=== PATIENT | male | born 1950 | race Caucasian/White ===

== ENCOUNTER → 2017-06-15 | Outpatient (CLI) | payer OTHER ==
[~2017-06-15] MED LIST: ACET-1311 PO; ALFUZOSIN HCL PO; ASPCH81; CHLO0.12 OR; DEXTSYP41 PO; GFNSR600 PO; IMD/2 PO; IMIP10TA2 PO; MAGNSUS5 PO; MULT-506 PO; PENC1CRE33 TOP; PPTBS PO; [UNRECOGNIZED DRUG - OTHER] PO; [UNRECOGNIZED DRUG - OTHER] TOP
== END | disposition home or self-care (01) ==
LOC: C.LAB 11:36
PROVIDERS: ATTEND Physician Assistant
DX: Z00.00 Encounter for general adult medical examination without abnormal findings (principal); E78.5 Hyperlipidemia, unspecified; Z12.5 Encounter for screening for malignant neoplasm of prostate

== ENCOUNTER 2023-03-16 09:08 | Inpatient (IN) ==
[2023-03-16] MEDS ORDERED: SODIUM CHLORIDE 0.9% 500 ML IV STA (09:49)
[2023-03-16 10:18] LABS: iSTAT Creatinine 1.4 mg/dl (0.6-1.3); iSTAT Hemoglobin 19.4 g/dl (14.0-18.0); iSTAT Ionized Calcium 0.93 mmol/l (1.12-1.32); iSTAT Potassium 3.4 mmol/L (3.3-5.0)
[2023-03-16 10:25] LABS: Base Excess VBG -0.4 mEq/L; HCO3 VBG 25 mmol/L; Oxygen Saturation VBG < 60.0 %; PCO2 VBG 45 mmHg (38-50); PO2 VBG 23 mmHg; pH VBG 7.36 (7.36-7.41)
[2023-03-16 10:32] LABS: Troponin I High Sensitivity 22.3 pg/ml (0-20)
[2023-03-16 10:35] LABS: Basophils # (auto) 0.06 K/uL (0.00-0.20); Basophils % (auto) 0.3 %; Hematocrit (blood only) 53.6 % (42.0-52.0); Hemoglobin 19.1 g/dl (14.0-18.0); Immature Granulocytes # (auto) 0.09 K/uL (0.01-0.20); Immature Granulocytes % (auto) 0.5 %; Lymphocytes # (auto) 0.55 K/uL (1.20-3.40); Lymphocytes % (auto) 3.1 %; Mean Corpuscular Hemoglobin 30.9 pg (25.0-34.0); Mean Corpuscular Hgb Conc 35.6 g/dL (32.0-36.0); Mean Corpuscular Volume 86.6 fL (80.0-100.0); Mean Platelet Volume 11.9 fL (9.4-12.4); Monocytes # (auto) 0.94 K/uL (0.11-0.59); Monocytes % (auto) 5.3 %; Neutrophils # (auto) 16.06 K/uL (1.40-6.50); Neutrophils % (auto) 90.8 %; Platelet Count 263 K/uL (130-400); Polychromasia 1+; RDW Coefficient of Variation 14.1 % (11.5-14.5); RDW Standard Deviation 44.3 fL (36.4-46.3); Red Blood Count 6.19 M/uL (4.70-6.10)
[2023-03-16 10:37] LABS: Potassium 3.5 mmol/L (3.5-5.1)
[2023-03-16 10:39] LABS: BUN Creatinine Ratio 20.6 (10-20); Calcium 8.1 mg/dl (8.6-10.3); Creatinine Clr Calc Pharmacy 40.4 ml/min; Est GFR (African American) 48.8 ml/min; Est GFR (Non-African American) 42.1 ml/min
[2023-03-16] MEDS ORDERED: OPTIRAY 320 125ml IV ONE (10:42)
[2023-03-16 10:47] LABS: INR 1.1 (0.9-1.1); Partial Thromboplastin Ratio 0.9; Partial Thromboplastin Time 26 Seconds (21-31); Prothrombin Time 12.2 Seconds (9.0-12.0)
--- NOTE | 2023-03-16 10:51 | CT Scan Report ---
CT head/brain wo con CLINICAL HISTORY: ams Technique: Contiguous axial CT images of the head were acquired from the base of the skull to the seble jeff without intravenous contrast administration. Images were viewed in brain, subdural and bone [facility]. Automated dose lowering techniques and/or adjustment according to patient size were utilized for this exam. Comparison: Comparison is made to CT head 10/29/2020 Findings: Areas of decreased attenuation are present in the periventricular and subcortical white matter bilate rally consistent with small vessel ischemic disease. Generalized cerebral atrophy with commensurate e nlargement of the ventricles, sulci, and cisterns is also present. There is no acute intracranial hem orrhage or evidence of acute territorial infarction. No shift of the midline structures, mass effect, or extra-axial abnormalities are shown. Atherosclerotic calcifications are present in the intracran ial segments of the internal carotid arteries. Imaged portions of the paranasal sinuses and mastoid air cells are clear. Bilateral ocular prosthese s. There are no acute fractures of the calvaria or scalp swelling. Impression: No acute intracranial hemorrhage, no evidence of acute territorial infarction or other acute intracra nial disease process. ACT 112: Negative or not required by law. Electronically signed by: Geovany Rosales M.D. 03/16/2023 10:49 AM
--- NOTE | 2023-03-16 10:51 | XRay Report ---
XR chest 1V portable CLINICAL HISTORY: Chest pain, nonspecific TECHNIQUE: Single frontal radiograph of the chest was obtained. Comparison: Comparison is made to chest radiograph 10/29/2020 FINDINGS: No lines and tubes are seen. Cardiomegaly is noted. Elevation of left hemidiaphragm is seen. No evide nce of pleural effusion or pneumothorax. IMPRESSION: Elevation of left hemidiaphragm is seen without acute abnormality. ACT 112: Negative or not required by law. Electronically signed by: Geovany Rosales M.D. 03/16/2023 10:50 AM
--- NOTE | 2023-03-16 10:57 | CT Scan Report ---
CT angio chest PE protocol CLINICAL HISTORY: ro pe TECHNIQUE: Multidetector row helical CT of the chest was performed with angiographic protocol. Rose l and sagittal reformations were obtained. Coronal and sagittal MIPS were obtained from the axial herve a set and were submitted for review. Automated dose lowering techniques and/or adjustment according to patient size were utilized for this exam. CT DOSE: 1464.32 mGy.cm Comparison: Comparison is made to chest radiograph 03/16/2023 FINDINGS: Lungs and pleura: Small bilateral pleural effusions are seen with underlying atelectasis. Heart and pericardium: Heart size is normal. No pericardial effusion. Vessels: No evidence of pulmonary embolism. Mediastinum and daniel: Unremarkable. Chest wall and lower neck: Unremarkable. Abdomen: Unremarkable. Bones: Degenerative changes in the thoracic spine. IMPRESSION: 1. No pulmonary embolus. 2. Small bilateral pleural effusions with underlying atelectasis. ACT 112: Negative or not required by law. Electronically signed by: Geovany Rosales M.D. 03/16/2023 10:54 AM
[2023-03-16 11:03] LABS: Adenovirus PCR Not Detected (NotDetected); Bordetella parapertussis PCR Not Detected (NotDetected); Bordetella pertussis PCR Not Detected (NotDetected); Chlamydia pneumoniae PCR Not Detected (NotDetected); Coronavirus 229E PCR Not Detected (NotDetected); Coronavirus CoV-2 (COVID19)PCR Not Detected (NotDetected); Coronavirus HKU1 PCR Not Detected (NotDetected); Coronavirus NL63 PCR Not Detected (NotDetected); Coronavirus OC43PCR Not Detected (NotDetected); Human Metapneumovirus PCR Not Detected (NotDetected); Influenza A PCR Not Detected (NotDetected); Influenza B PCR Not Detected (NotDetected); Mycoplasma pneumoniae PCR Not Detected (NotDetected); Parainfluenza Virus 1 PCR Not Detected (NotDetected); Parainfluenza Virus 2 PCR Not Detected (NotDetected); Parainfluenza Virus 3 PCR Not Detected (NotDetected); Parainfluenza Virus 4 PCR Not Detected (NotDetected); Respiratory Syncytial VirusPCR Not Detected (NotDetected); Rhinovirus/Enterovirus PCR Not Detected (NotDetected)
[2023-03-16 11:05] LABS: Appearance Urine Clear (Clear); Bacteria Urine Automated Negative (Negative); Blood Urine Negative (Negative); Color Urine Dark Yellow; Epithelial Cell Urine Auto >30 /lpf (0-5); Glucose Urine UA Negative (Negative); Ketones Urine Negative (Negative); Leukocyte Esterase Urine Trace (Negative); Nitrite Urine Positive (Negative); Protein Urine 1+ (Negative); Specific Gravity Urine > 1.045 (1.000-1.030); Urobilinogen Urine Negative (Negative)
[2023-03-16 11:07] LABS: Bilirubin Urine 2+ (Negative)
[2023-03-16] MEDS ORDERED: SODIUM CHLORIDE 0.9% 1,000 ML IV ONE (12:33)
[2023-03-16] MEDS ORDERED: CEFEPIME 2,000 MG/20 ML VIAL IV STA (12:33)
[2023-03-16] MEDS ORDERED: VANCOMYCIN CONSULT ACTIVE PRN (12:35)
[2023-03-16] MEDS ORDERED: VANCOMYCIN HCL 1,500 MG in SODIUM CHLORIDE 0.9% 500 ML IV ONE (12:35)
[2023-03-16 12:41] LABS: Troponin I High Sensitivity 30.2 pg/ml (0-20)
--- NOTE | 2023-03-16 13:18 | History & Physical Report ---
Date of Service March 16, 2023 Assessment & Plan (1) Acute metabolic encephalopathy: Plan: Possibly secondary to developing sepsis secondary to UTI. Continue plan per #2. (2) UTI (urinary tract infection): Plan: Acute confusion, sweating, tachycardia, generalized weakness all point to a clinical urinary tract infection in a patient who has a higher risk for this. There is no bacteria on straight cath sample of urine taken today in the ER, however there is some positive nitrate and leuk esterase present. Agree with continuing broad-spectrum antibiotics and will de-escalate to Rocephin pending urinary culture results and clinical improvement. Possible developing sepsis but appears more resuscitated at this time. Repeat lactate pending. Will trend bladder scan to ensure no issues with urinary retention in setting of possible infection. (3) Elevated troponin: Plan: Elevated troponin likely related to demand ischemia in the setting of possible developing sepsis. However, will continue to trend troponin as his initial troponin had a small rise, going from 22.3-30.2 within 2 hours. EKG does not reveal any acute ischemia and patient denies any issues with chest pain and is expressing no nonverbal communication that would suggest he is having chest pain. Normal respiratory effort and he is not diaphoretic at this time. Continue to trend EKG daily. Will order echo to rule out acute wall motion abnormality. At this time believe ACS is unlikely and troponin elevation has another possible alternative cause. (4) Weakness: Plan: Likely a result of some ongoing infection versus other insult. With elevated lactate and presentation above, I am more concerned with an infection at this point. He does have elevated leukocytosis but appears also very concentrated on his CBC. He also has an elevated creatinine consistent with prerenal azotemia and dehydration. Continue with plan of rehydration efforts and treatment of possible infection. PT/OT consult prior to discharge. (5) BPH (benign prostatic hyperplasia): Plan: Chronic, stable although there has been some increased urinary incontinence in the last month. Continue Avodart and Flomax per home regimen. Will rule out infection, follow-up with outpatient urologist. (6) Seizures: Plan: Per history he had seizures as a child but is not on antiepileptic drugs and has no recent seizures in the past few years. (7) Intellectual disability: Plan: Chronic intellectual disability but he is very functional. He is legally blind with prosthetic eyes bilaterally and illiterate, therefore needs some help with IADLs. He is able to feed himself and ambulate independently otherwise. Lives at [facility]. (8) Hypothyroidism: Plan: Chronic, stable. Repeat TSH is pending. Continue levothyroxine at home dose. Lovenox Full code as confirmed with caregiver Dispo-telemetry I spent a total of75 minutes coordinating, documenting, and providing care for this patient excluding time spent in the performance of separately billed services. I did contact his brother and LIMA Melo, who lives in [place], [place] and updated him on the plan. He verbalized understanding and thanked me for the update. Flor Galvan DO [facility] History of Present Illness Chief Complaint: Shortness of breath/dyspnea Primary Care Provider: Balaji Solomon MD Patient is a 73-year-old man with intellectual disability who lives at the [facility]. He is reportedly alert and oriented x 3 although I cannot discern this from today's examination, however, he is unable to give a history secondary to intellectual disability. History is provided by his railroad yard worker, Yamile. She is at the bedside. She states that over the last 3 to 4 days he has become more weak, intermittently sweaty with periods of tachycardia and increased work of breathing at times. She states that he typically is very sociable but today appeared very withdrawn. He was eating his breakfast and exhibiting excessive diaphoresis per her account, along with poor appetite which is not his usual. At baseline he ambulates independently. He is able to feed himself but is legally blind. He is also illiterate. He may not comprehend a number scale for pain assessment per his care provider. For the past month she reports he has had issues with bowel incontinence and urinary incontinence. He has seen [facility]rology for issues with urinary retention related to a urethral stricture that was fixed surgically. He no longer has a chronic indwelling Souza catheter as a result. He is on dutasteride and alfuzosin regularly. The patient himself denies any chest pain, shortness of breath, or other issues. He reports he is feeling "just fine." Care provider states that he minimizes issues and frequently does not tell her if things are bothering him. Some conf usion has been noted by caregiver who also stated that his heart rate was in the 130s this morning. She did offer that in the past he had been limited on his fluid intake because of an issue with recurrent hyponatremia. He does appear dehydrated but she does not confirm that he is currently on a fluid restriction. In the ER he was given 1.5 L of normal saline and administered broad-spectrum antibiotics with vancomycin and cefepime. Heart rate improved to 104 bpm from initial pulse of 117. Blood pressure has remained stable with no evidence of hypotension. He is afebrile and oxygenating 92% on room air. I reviewed the blood work, imaging studies and the plan with care provider who verbalized understanding. I reviewed the EKG personally and reviewed his outpatient medical records for additional information. Allergies Allergy/AdvReac Type Severity Reaction Status Date / Time bacitracin Allergy Unknown Unknown Verified 07/30/22 10:45 [From Neosporin ([id number])] neomycin Allergy Unknown Unknown Verified 07/30/22 10:45 [From Neosporin ([id number])] polymyxin B Allergy Unknown Unknown Verified 07/30/22 10:45 [From Neosporin ([id number])] Neosporin OINT Allergy Unknown Uncoded 07/30/22 10:45 Home Medications Medication Instructions Recorded Confirmed Type levothyroxine 25 mcg tablet 25 mcg PO .@69903/14/20 03/16/23 History (Synthroid) acetaminophen 325 mg tablet 650 mg PO Q4H PRN 09/19/20 03/16/23 History (Tylenol) FEVER/HEADACHE/MINOR ACHES/PAIN aspirin 81 mg tablet,delayed 81 mg PO . @79909/19/20 03/16/23 History release atorvastatin 10 mg tablet 10 mg PO .@79909/19/20 03/16/23 History buspirone 10 mg tablet 10 mg PO .@199909/19/20 03/16/23 History fluticasone propionate 50 2 spray intranasal .@79909/19/20 03/16/23 History mcg/actuation nasal spray,suspension multivitamin (Daily-Chidi tablet) 1 tab PO .@79909/19/20 03/16/23 History Baby Shampoo See Rx Instructions .Route .COMPLEX 03/16/23 03/16/23 History Nitro 0.2% Ointment/Petroleum 1 applic [place] .@199903/16/2323 History Thera Breath Oral Rinse 2 cap PO .@199903/16/23 03/16/23 History albuterol sulfate 90 mcg/actuation 2 puff inhalation Q6H PRN 03/16/23 03/16/23 History aerosol inhaler COUGH/WHEEZING buspirone 15 mg tablet 15 mg PO .@1600 03/16/23 03/16/23 History clotrimazole 1 % topical cream 1 applic topical BID@03/16/23 03/16/23 History docusate sodium 100 mg capsule 100 mg PO . @199903/16/23 03/16/23 History dutasteride 0.5 mg capsule 0.5 mg PO .@79903/16/23 03/16/23 History (Avodart) fluoride (sodium) 1.1 % dental 1 applic dental .@799, 199903/16/23 03/16/23 History paste loperamide 2 mg capsule (Imodium See Rx Instructions .Route 03/16/23 03/16/23 History A-D) .COMPLEX PRN Diarrhea loratadine 10 mg tablet 10 mg PO .@79903/16/23 03/16/23 History magnesium hydroxide 400 mg/5 mL See Rx Instructions .Route 03/16/23 03/16/23 History oral suspension (Milk of Magnesia) .COMPLEX PRN Constipation mupirocin 2 % topical ointment 1 applic topical TID PRN Wound Care 03/16/23 03/16/23 History olopatadine 0.2 % eye drops 1 drp OPB .@79903/16/23 03/16/23 History tamsulosin 0.4 mg capsule 0.4 mg PO .@199903/16/23 03/16/23 History white petrolatum 41 % topical 1 applic topical . @79903/16/23 03/16/23 History ointment (Aquaphor Healing) Past Med/Surg History Medical History (Updated 03/16/23 @ 14:42 by Flor Galvan DO) Illiterate Blind in both eyes Nocturnal enuresis Chronic allergic rhinitis Prediabetes Urinary incontinence Intellectual disability Hyponatremia Hypothyroidism 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 Lives in long term resides at [facility]--all pt information obtained from caregiver at [facility] Hyperlipidemia BPH (benign prostatic hyperplasia) Seizures Last seizure- "many years ago"--reason for Trileptal Surgical History (Updated 03/16/23 @ 14:42 by Flor Galvan DO) S/P appy No pertinent past surgical history H/O eye surgery As child- to place eye prosthetics Family History Other Family history non-contributory Family history unknown Social History Smoking Status: Never smoker Second Hand Exposure: No; Do You Dip or Chew Tobacco: No; Hx Alcohol Use: No Hx Substance Use: No Preferred Language: [place] Communication Ability: Impaired Communication Ability Comment: per phone interview "any caregiver at [facility] can sign consents Hand Zipper Trimmer Required: No Beliefs That Will Affect Care: None marital status: Single Current Living Situation: Other Current Living Situation Comment: Lives at [facility] current occupational status: unemployed and disabled Feels Safe at Home: Yes Assistive Devices: Cane Physical Exam Physical Exam: CONSTITUTIONAL: WNWD, vitals as above, generally NAD EYES: bilateral prosthetic eyes, PERRL, normal conjunctivae, no evidence of blepharitis. ENT: external ear and nose normal, oropharynx clear, with dry mucous membranes, partial dentures present NECK: trachea midline, no lymphadenopathy RESPIRATORY: clear to auscultation bilaterally, no crackles, rales or wheezes, normal respiratory effort CARDIOVASCULAR: regular rate and rhythm, S1 and 2 heard without murmurs, gallops or rubs, no JVD, no peripheral edema CHEST: inspection of chest was normal GASTROINTESTINAL: soft, nontender, ND, no guarding, well healed vertical abdominal scar MUSCULOSKELETAL: generalized weakness without gross focal deficits, head is normocephalic and atraumatic SKIN: warm and dry, small abrasion on his right knee that is closed and well healing. NEUROLOGIC: unable to elicit patellar DTR, No facial palsy, no dysarthria. CN 2-12 grossly intact, no sensory deficit, normal cognition, normal speech, no tremor PSYCHIATRIC: alert cooperative and attempts to answer questions, possible confusion present although at baseline he is also not forthcoming with answers per caregiver who is at bedside. Euthymic mood, makes good eye contact, language grossly intact, recent and remote memory grossly intact. Results & Data Results & Data Vital Signs (Past 12 Hours) Vital Signs Temp Pulse Pulse Resp BP Pulse Ox O2 Del Method 03/16/23 09:23 117 H 03/16/23 09:03 107 H 16 03/16/23 09:03 Room Air 03/16/23 09:00 36.6 C 106 H 18 133/102 H 92 Room Air Laboratory Results Short CBC 03/16/23 Range/Units 09:25 WBC 17.70 H (4.8-10.8) K/ul Hgb 19.1 H (14.0-18.0) g/dl Hct 53.6 H (42.0-52.0) % Plt Count 263 (130-400) K/uL BMP 03/16/23 09:25 Sodium 133 L Potassium 3.5 Chloride 97 L Carbon Dioxide 22 BUN 33 H Creatinine 1.60 H Glucose 193 H Calcium 8.1 L Urine 03/16/23 Range/Units 10:55 Urine Color Dark Yellow Urine Appearance Clear (Clear) Urine pH 6.0 (4.5-7.5) Ur Specific [place] > 1.045 H (1.000-1.030) Urine Protein 1+ H (Negative) Urine Glucose (UA) Negative (Negative) Diagnostic Findings Chest CTA 03/16/23 09:49 CT angio chest PE protocol CLINICAL HISTORY: ro pe TECHNIQUE: Multidetector row helical CT of the chest was performed with angiographic protocol. Coronal and sagittal reformations were obtained. Coronal and sagittal MIPS were obtained from the axial data set and were submitted for review. Automated dose lowering techniques and/or adjustment according to patient size were utilized for this exam. CT DOSE: 1464.32 mGy.cm Comparison: Comparison is made to chest radiograph 03/16/2023 FINDINGS: Lungs and pleura: Small bilateral pleural effusions are seen with underlying atelectasis. Heart and pericardium: Heart size is normal. No pericardial effusion. Vessels: No evidence of pulmonary embolism. Mediastinum and daniel: Unremarkable. Chest wall and lower neck: Unremarkable. Abdomen: Unremarkable. Bones: Degenerative changes in the thoracic spine. IMPRESSION: 1. No pulmonary embolus. 2. Small bilateral pleural effusions with underlying atelectasis. ACT 112: Negative or not required by law. Electronically signed by: Geovany Rosales M.D. 03/16/2023 10:54 AM Chest X-Ray 03/16/23 09:49 XR chest 1V portable CLINICAL HISTORY: Chest pain, nonspecific TECHNIQUE: Single frontal radiograph of the chest was obtained. Comparison: Comparison is made to chest radiograph 10/29/2020 FINDINGS: No lines and tubes are seen. Cardiomegaly is noted. Elevation of left hemidiaphragm is seen. No evidence of pleural effusion or pneumothorax. IMPRESSION: Elevation of left hemidiaphragm is seen without acute abnormality. ACT 112: Negative or not required by law. Electronically signed by: Geovany Rosales M.D. 03/16/2023 10:[address] 03/16/23 09:49 CT head/brain wo con CLINICAL HISTORY: ams Technique: Contiguous axial CT images of the head were acquired from the base of the skull to the vertex without intravenous contrast administration. Images were viewed in brain, subdural and bone windows. Automated dose lowering techniques and/or adjustment according to patient size were utilized for this exam. Comparison: Comparison is made to CT head 10/29/2020 Findings: Areas of decreased attenuation are present in the periventricular and subcortical white matter bilaterally consistent with small vessel ischemic disease. Generalized cerebral atrophy with commensurate enlargement of the ventricles, sulci, and cisterns is also present. There is no acute intracranial hemorrhage or evidence of acute territorial infarction. No shift of the midline structures, mass effect, or extra-axial abnormalities are shown. At herosclerotic calcifications are present in the intracranial segments of the internal carotid arteries. Imaged portions of the paranasal sinuses and mastoid air cells are clear. Bilateral ocular prostheses. There are no acute fractures of the calvaria or scalp swelling. Impression: No acute intracranial hemorrhage, no evidence of acute territorial infarction or other acute intracranial disease process. ACT 112: Negative or not required by law. Electronically signed by: Geovany Rosales M.D. 03/16/2023 10:49 AM
[2023-03-16] MEDS ORDERED: POLYETHYLENE (MIRALAX) 17 GM PACK PO PRN (16:31)
[2023-03-16] MEDS ORDERED: ONDANSETRON INJ 2 MG/ML 2 ML VIAL IV PRN (16:31)
[2023-03-16] MEDS ORDERED: ACETAMINOPHEN 325 MG TAB PO PRN (16:31)
[2023-03-16 17:11] LABS: Thyroid Stimulating Hormone 1.942 uIu/ml (0.300-4.500)
--- NOTE | 2023-03-16 17:28 | Emergency Department Note ---
History of Present Illness General Chief complaint: Shortness of Breath/Dyspnea Stated complaint: SOB Time Seen by Provider: 03/16/23 09:33 History of Present Illness Provider complaint: Shortness of breath confusion 73-year-old male presents to the emergency department with his solderer dipper. Patient is from [facility] facility. Caregiver reports that the patient has had increasing confusion and shortness of breath today. She reports the dyspnea is worse with exertion. She reports that the patient was diaphoretic at the facility. The caregiver reports that they were concerned that the patient might have a UTI. Home Medications Medication Instructions Recorded Confirmed Type levothyroxine 25 mcg tablet 25 mcg PO .@69903/14/20 03/16/23 History (Synthroid) acetaminophen 325 mg tablet 650 mg PO Q4H PRN 09/19/20 03/16/23 History (Tylenol) FEVER/HEADACHE/MINOR ACHES/PAIN aspirin 81 mg tablet,delayed 81 mg PO . @79909/19/20 03/16/23 History release atorvastatin 10 mg tablet 10 mg PO .@79909/19/20 03/16/23 History buspirone 10 mg tablet 10 mg PO .@199909/19/20 03/16/23 History fluticasone propionate 50 2 spray intranasal .@79909/19/20 03/16/23 History mcg/actuation nasal spray,suspension multivitamin (Daily-Chidi tablet) 1 tab PO .@79909/19/20 03/16/23 History Baby Shampoo See Rx Instructions .Route .COMPLEX 03/16/23 03/16/23 History Nitro 0.2% Ointment/Petroleum 1 applic PA .@199903/16/23 03/16/23 History Thera Breath Oral Rinse 2 cap PO .@199903/16/23 03/16/23 History albuterol sulfate 90 mcg/actuation 2 puff inhalation Q6H PRN 03/16/23 03/16/23 History aerosol inhaler COUGH/WHEEZING buspirone 15 mg tablet 15 mg PO .@159903/16/23 03/16/23 History clotrimazole 1 % topical cream 1 applic topical BID@03/16/23 03/16/23 History docusate sodium 100 mg capsule 100 mg PO . @199903/16/2303/16/23 History dutasteride 0.5 mg capsule 0.5 mg PO .@79903/16/23 03/16/23 History (Avodart) fluoride (sodium) 1.1 % dental 1 applic dental .@199903/16/23 03/16/23 History paste loperamide 2 mg capsule (Imodium See Rx Instructions .Route 03/16/23 03/16/23 History A-D) .COMPLEX PRN Diarrhea loratadine 10 mg tablet 10 mg PO .@79903/16/23 03/16/23 History magnesium hydroxide 400 mg/5 mL See Rx Instructions .Route 03/16/23 03/16/23 History oral suspension (Milk of Magnesia) .COMPLEX PRN Constipation mupirocin 2 % topical ointment 1 applic topical TID PRN Wound Care 03/16/23 03/16/23 History olopatadine 0.2 % eye drops 1 drp OPB .@79903/16/23 03/16/23 History tamsulosin 0.4 mg capsule 0.4 mg PO .@199903/16/23 03/16/23 History white petrolatum 41 % topical 1 applic topical . @79903/16/23 03/16/23 History ointment (Aquaphor Healing) Allergies Allergy/AdvReac Type Severity Reaction Status Date / Time bacitracin Allergy Unknown Unknown Verified 07/30/22 10:45 [From Neosporin ([id number])] neomycin Allergy Unknown Unknown Verified 07/30/22 10:45 [From Neosporin ([id number])] polymyxin B Allergy Unknown Unknown Verified 07/30/22 10:45 [From Neosporin ([id number])] Neosporin OINT Allergy Unknown Uncoded 07/30/22 10:45 Past Med/Surg History Medical History Illiterate Blind in both eyes Nocturnal enuresis Chronic allergic rhinitis Prediabetes Urinary incontinence Intellectual disability Hyponatremia Hypothyroidism 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 Lives in [place] resides at [facility]--all pt information obtained from caregiver at [facility] Hyperlipidemia BPH (benign prostatic hyperplasia) Seizures Last seizure- "many years ago"--reason for Trileptal Surgical History S/P appy No pertinent past surgical history H/O eye surgery As child- to place eye prosthetics Family History Other Family history non-contributory Family history unknown Social History Smoking Status: Never smoker Second Hand Exposure: No; Do You Dip or Chew Tobacco: No; Hx Alcohol Use: No Hx Substance Use: No Preferred Language: Citizen Of [place] Communication Ability: Impaired Communication Ability Comment: per phone interview "any caregiver at [place] can sign consents Derrick Hand Required: No Beliefs That Will Affect Care: None marital status: Single Current Living Situation: Other Current Living Situation Comment: Lives at [facility] Retirement current occupational status: unemployed and disabled Feels Safe at Home: Yes Assistive Devices: Cane Physical Exam Vital Signs Vital Signs - 24 hr 03/16/23 09:00 03/16/23 09:03 03/16/23 09:03 Temperature 36.6 C Temperature Source Axillary Pulse Rate 106 H Pulse Rate [Apical] 107 H Pulse Rate from SpO2 Sensor Respiratory Rate 18 16 Blood Pressure 133/102 H Blood Pressure Mean 112 Pulse Oximetry 92 Oxygen Delivery Method Room Air Room Air Sepsis Recent Fever Within 48 Hours No Sepsis New/Unexplained Change in Mental Status No Sepsis Action Taken by Nursing No Action Required 03/16/23 09:19 03/16/23 09:23 03/16/23 09:49 Temperature Temperature Source Pulse Rate 111 H 117 H Pulse Rate [Apical] Pulse Rate from SpO2 Sensor 113 H Respiratory Rate 22 Blood Pressure Blood Pressure Mean Pulse Oximetry 99 95 Oxygen Delivery Method Room Air Sepsis Recent Fever Within 48 Hours Sepsis New/Unexplained Change in Mental Status Sepsis Action Taken by Nursing 03/16/23 10:00 03/16/23 12:00 03/16/23 13:00 Temperature Temperature Source Pulse Rate 107 H 104 H 103 H Pulse Rate [Apical] Pulse Rate from SpO2 Sensor 104 H 114 H 90 Respiratory Rate 24 23 22 Blood Pressure 128/94 Blood Pressure Mean 105 Pulse Oximetry 95 88 L 93 Oxygen Delivery Method Sepsis Recent Fever Within 48 Hours Sepsis New/Unexplained Change in Mental Status Sepsis Action Taken by Nursing Physical Exam NECK: Normal range of motion. Neck supple. No JVD present. CV: Normal rate, regular rhythm, normal heart sounds and intact distal pulses. There is no peripheral edema. Palpable radial pulses bue. PULM/CHEST: Effort normal and breath sounds normal. No respiratory distress. No stridor. no wheezes. no rales. ABD: The abdomen is soft. There is no tenderness. NEURO: At baseline per caregiver. Motor and sensation grossly intact. Course Course 932: The patient was evaluated in room C6. A complete history and physical exam was performed Cardiac monitoring: An order was placed for continuous cardiac monitoring. The monitor shows a rate of 110 with sinus rhythm interpreted by pr 1235: Vital signs stable. Labs show leukocytosis 17. Initial high-sensitivity troponin elevated. Lactic acid 2.7. Patient treated with broad-spectrum antibiotics. Urinalysis does not appear to be source of infection at this time. Bio fire negative. CT head and CTA chest negative. [facility]. Administered Medications Discontinued Medications Sodium Chloride (Nss) 500 mls @ 999 mls/hr IV .Q31M STA Stop: 03/16/23 10:19 Last Infusion: 03/16/23 10:21 Dose: Infused Documented By: Admin: 03/16/23 10:01 Dose: 999 mls/hr Documented By: JORGE Sodium Chloride (Nss) 1,000 mls @ 999 mls/hr IV .Q1H1M ONE Stop: 03/16/23 13:33 Last Infusion: 03/16/23 13:44 Dose: Infused Documented By: Admin: 03/16/23 12:46 Dose: 999 mls/hr Documented By: PARTHA Cefepime HCl (Maxipime) 2,000 mg in 20 mls @ 5 mls/min IV NOW STA; Protocol Stop: 03/16/23 12:36 Last Admin: 03/16/23 12:47 Dose: 5 mls/min Documented By: PARTHA Vancomycin HCl 1,500 mg/ (Sodium Chloride) 530 mls @ 200 mls/hr IV NOW ONE Stop: 03/16/23 15:13 Last Infusion: 03/16/23 17:08 Dose: Infused Documented By: Admin: 03/16/23 13:43 Dose: 200 mls/hr Documented By: PARTHA Ioversol (Optiray 320 125ml) 119 ml IV ONCE ONE Stop: 03/16/23 10:43 Last Admin: 03/16/23 10:42 Dose: 119 ml Documented By: KAREN Medical Decision Making Laboratory Data Attestation: I reviewed the patient's lab results. 03/16/23 09:25 03/16/23 09:25 Lab Results 03/16/23 03/16/23 03/16/23 Range/Units 09:25 10:00 10:05 WBC 17.70 H (4.8-10.8) K/ul RBC 6.19 H (4.70-6.10) M/uL Hgb 19.1 H (14.0-18.0) g/dl POC Hgb 19.4 H (14.0-18.0) g/dl Hct 53.6 H (42.0-52.0) % POC Hct 57 H (42-52) % MCV 86.6 (80.0-100.0) fL MCH 30.9 (25.0-34.0) pg MCHC 35.6 (32.0-36.0) g/dL RDW Std Deviation 44.3 (36.4-46.3) fL RDW Coeff of Kobe 14.1 (11.5-14.5) % Plt Count 263 (130-400) K/uL MPV 11.9 (9.4-12.4) fL Immature Gran % (Auto) 0.5 % Neut % (Auto) 90.8 % Lymph % (Auto) 3.1 % Sibley % (Auto) 5.3 % Eos % (Auto) 0.0 % Baso % (Auto) 0.3 % Neut # (Auto) 16.06 H (1.40-6.50) K/uL Lymph # (Auto) 0.55 L (1.20-3.40) K/uL Sibley # (Auto) 0.94 H (0.11-0.59) K/uL Eos # (Auto) 0.00 (0.00-0.50) K/uL Baso # (Auto) 0.06 (0.00-0.20) K/uL Immature Gran # (Auto) 0.09 (0.01-0.20) K/uL Polychromasia 1+ PT 12.2 H (9.0-12.0) Seconds INR 1.1 (0.9-1.1) APTT 26 (21-31) Seconds PTT Ratio 0.9 VBG pH (7.36-7.41) VBG pCO2 (38-50) mmHg VBG pO2 mmHg VBG HCO3 mmol/L VBG O2 Saturation % VBG Base Excess mEq/L POC Sodium 135 (135-144) mmol/L Sodium 133 L (136-145) mmol/L POC Potassium 3.4 (3.3-5.0) mmol/L Potassium 3.5 (3.5-5.1) mmol/L POC Chloride 98 L (101-112) mmol/L Chloride 97 L (98-107) mmol/L Carbon Dioxide 22 (21-32) mmol/L POC Total CO2 23 L (24-31) mmol/L Anion Gap 14 H (3-11) POC Anion Gap 18.0 (16-25) mmol/L POC BUN 36 H (7-18) mg/dl BUN 33 H (6-23) mg/dl Creatinine 1.60 H (0.6-1.4) mg/dl POC Creatinine 1.4 H (0.6-1.3) mg/dl Est Cr Clr Drug Dosing 40.4 ml/min Est GFR ( Amer) 48.8 ml/min Est GFR (Non-Af Amer) 42.1 ml/min BUN/Creatinine Ratio 20.6 H (10-20) Glucose 193 H (70-99(Fasting)) mg/dl POC Glucose (other) 177 H (70-99) mg/dl Lactate (0.4-2.0) mmol/L Calcium 8.1 L (8.6-10.3) mg/dl POC Ioniz Calcium Ayanna 0.93 L (1.12-1.32) mmol/l Troponin I High Sens 22.3 H (0-20) pg/ml Lipase 50 (11-82) U/L TSH (0.300-4.500) uIu/ml Urine Color Urine Appearance (Clear) Urine pH (4.5-7.5) Ur Specific [place] (1.000-1.030) Urine Protein (Negative) Urine Glucose (UA) (Negative) Urine Ketones (Negative) Urine Blood (Negative) Urine Nitrite (Negative) Urine Bilirubin (Negative) Urine Urobilinogen (Negative) Ur Leukocyte Esterase (Negative) Urine WBC (Auto) (0-5) /hpf Urine RBC (Auto) (0-4) /hpf U Hyaline Cast (Auto) (0-5) /lpf U Epithel Cells (Auto) (0-5) /lpf Urine Bacteria (Auto) (Negative) Adenovirus (PCR) Not Detected (NotDetected) B. pertussis DNA (PCR) Not Detected (NotDetected) B.parapertussis DNA PCR Not Detected (NotDetected) C. pneumoniae DNA (PCR) Not Detected (NotDetected) Coronavirus OC43 (PCR) Not Detected (NotDetected) Coronavirus HKU1 (PCR) Not Detected (NotDetected) Coronavirus 229E (PCR) Not Detected (NotDetected) SARS-CoV-2 (PCR) Not Detected (NotDetected) Coronavirus NL63 (PCR) Not Detected (NotDetected) Human Metapneumovir PCR Not Detected (NotDetected) Influenza Type A (PCR) Not Detected (NotDetected) Influenza Type B (PCR) Not Detected (NotDetected) M. pneumoniae (PCR) Not Detected (NotDetected) Parainfluenza 1 (PCR) Not Detected (NotDetected) Parainfluenza 2 (PCR) Not Detected (NotDetected) Parainfluenza 3 (PCR) Not Detected (NotDetected) Parainfluenza 4 (PCR) Not Detected (NotDetected) RSV (PCR) Not Detected (NotDetected) Entero/Rhino (PCR) Not Detected (NotDetected) 03/16/23 03/16/23 03/16/23 Range/Units 10:18 10:55 11:50 WBC (4.8-10.8) K/ul RBC (4.70-6.10) M/uL Hgb (14.0-18.0) g/dl POC Hgb (14.0-18.0) g/dl Hct (42.0-52.0) % POC Hct (42-52) % MCV (80.0-100.0) fL MCH (25.0-34.0) pg MCHC (32.0-36.0) g/dL RDW Std Deviation (36.4-46.3) fL RDW Coeff of Kobe (11.5-14.5) % Plt Count (130-400) K/uL MPV (9.4-12.4) fL Immature Gran % (Auto) % Neut % (Auto) % Lymph % (Auto) % Sibley % (Auto) % Eos % (Auto) % Baso % (Auto) % Neut # (Auto) (1.40-6.50) K/uL Lymph # (Auto) (1.20-3.40) K/uL Sibley # (Auto) (0.11-0.59) K/uL Eos # (Auto) (0.00-0.50) K/uL Baso # (Auto) (0.00-0.20) K/uL Immature Gran # (Auto) (0.01-0.20) K/uL Polychromasia PT (9.0-12.0) Seconds INR (0.9-1.1) APTT (21-31) Seconds PTT Ratio VBG pH 7.36 (7.36-7.41) VBG pCO2 45 (38-50) mmHg VBG pO2 23 mmHg VBG HCO3 25 mmol/L VBG O2 Saturation < 60.0 % VBG Base Excess -0.4 mEq/L POC Sodium (135-144) mmol/L Sodium (136-145) mmol/L POC Potassium (3.3-5.0) mmol/L Potassium (3.5-5.1) mmol/L POC Chloride (101-112) mmol/L Chloride (98-107) mmol/L Carbon Dioxide (21-32) mmol/L POC Total CO2 (24-31) mmol/L Anion Gap (3-11) POC Anion Gap (16-25) mmol/L POC BUN (7-18) mg/dl BUN (6-23) mg/dl Creatinine (0.6-1.4) mg/dl POC Creatinine (0.6-1.3) mg/dl Est Cr Clr Drug Dosing ml/min Est GFR ( Amer) ml/min Est GFR (Non-Af Amer) ml/min BUN/Creatinine Ratio (10-20) Glucose (70-99(Fasting)) mg/dl POC Glucose (other) (70-99) mg/dl Lactate 2.7 H* (0.4-2.0) mmol/L Calcium (8.6-10.3) mg/dl POC Ioniz Calcium Ayanna (1.12-1.32) mmol/l Troponin I High Sens (0-20) pg/ml Lipase (11-82) U/L TSH (0.300-4.500) uIu/ml Urine Color Dark Yellow Urine Appearance Clear (Clear) Urine pH 6.0 (4.5-7.5) Ur Specific [place]te > 1.045 H (1.000-1.030) Urine Protein 1+ H (Negative) Urine Glucose (UA) Negative (Negative) Urine Ketones Negative (Negative) Urine Blood Negative (Negative) Urine Nitrite Positive A (Negative) Urine Bilirubin 2+ H (Negative) Urine Urobilinogen Negative (Negative) Ur Leukocyte Esterase Trace H (Negative) Urine WBC (Auto) 1-5 (0-5) /hpf Urine RBC (Auto) 5-10 H (0-4) /hpf U Hyaline Cast (Auto) 5-10 H (0-5) /lpf U Epithel Cells (Auto) >30 H (0-5) /lpf Urine Bacteria (Auto) Negative (Negative) Adenovirus (PCR) (NotDetected) B. pertussis DNA (PCR) (NotDetected) B.parapertussis DNA PCR (NotDetected) C. pneumoniae DNA (PCR) (NotDetected) Coronavirus OC43 (PCR) (NotDetected) Coronavirus HKU1 (PCR) (NotDetected) Coronavirus 229E (PCR) (NotDetected) SARS-CoV-2 (PCR) (NotDetected) Coronavirus NL63 (PCR) (NotDetected) Human Metapneumovir PCR (NotDetected) Influenza Type A (PCR) (NotDetected) Influenza Type B (PCR) (NotDetected) M. pneumoniae (PCR) (NotDetected) Parainfluenza 1 (PCR) (NotDetected) Parainfluenza 2 (PCR) (NotDetected) Parainfluenza 3 (PCR) (NotDetected) Parainfluenza 4 (PCR) (NotDetected) RSV (PCR) (NotDetected) Entero/Rhino (PCR) (NotDetected) 03/16/23 Range/Units 11:56 WBC (4.8-10.8) K/ul RBC (4.70-6.10) M/uL Hgb (14.0-18.0) g/dl POC Hgb (14.0-18.0) g/dl Hct (42.0-52.0) % POC Hct (42-52) % MCV (80.0-100.0) fL MCH (25.0-34.0) pg MCHC (32.0-36.0) g/dL RDW Std Deviation (36.4-46.3) fL RDW Coeff of Kobe (11.5-14.5) % Plt Count (130-400) K/uL MPV (9.4-12.4) fL Immature Gran % (Auto) % Neut % (Auto) % Lymph % (Auto) % Sibley % (Auto) % Eos % (Auto) % Baso % (Auto) % Neut # (Auto) (1.40-6.50) K/uL Lymph # (Auto) (1.20-3.40) K/uL Sibley # (Auto) (0.11-0.59) K/uL Eos # (Auto) (0.00-0.50) K/uL Baso # (Auto) (0.00-0.20) K/uL Immature Gran # (Auto) (0.01-0.20) K/uL Polychromasia PT (9.0-12.0) Seconds INR (0.9-1.1) APTT (21-31) Seconds PTT Ratio VBG pH (7.36-7.41) VBG pCO2 (38-50) mmHg VBG pO2 mmHg VBG HCO3 mmol/L VBG O2 Saturation % VBG Base Excess mEq/L POC Sodium (135-144) mmol/L Sodium (136-145) mmol/L POC Potassium (3.3-5.0) mmol/L Potassium (3.5-5.1) mmol/L POC Chloride (101-112) mmol/L Chloride (98-107) mmol/L Carbon Dioxide (21-32) mmol/L POC Total CO2 (24-31) mmol/L Anion Gap (3-11) POC Anion Gap (16-25) mmol/L POC BUN (7-18) mg/dl BUN (6-23) mg/dl Creatinine (0.6-1.4) mg/dl POC Creatinine (0.6-1.3) mg/dl Est Cr Clr Drug Dosing ml/min Est GFR ( Amer) ml/min Est GFR (Non-Af Amer) ml/min BUN/Creatinine Ratio (10-20) Glucose (70-99(Fasting)) mg/dl POC Glucose (other) (70-99) mg/dl Lactate (0.4-2.0) mmol/L Calcium (8.6-10.3) mg/dl POC Ioniz Calcium Ayanna (1.12-1.32) mmol/l Troponin I High Sens 30.2 H (0-20) pg/ml Lipase (11-82) U/L TSH 1.942 (0.300-4.500) uIu/ml Urine Color Urine Appearance (Clear) Urine pH (4.5-7.5) Ur Specific [place] (1.000-1.030) Urine Protein (Negative) Urine Glucose (UA) (Negative) Urine Ketones (Negative) Urine Blood (Negative) Urine Nitrite (Negative) Urine Bilirubin (Negative) Urine Urobilinogen (Negative) Ur Leukocyte Esterase (Negative) Urine WBC (Auto) (0-5) /hpf Urine RBC (Auto) (0-4) /hpf U Hyaline Cast (Auto) (0-5) /lpf U Epithel Cells (Auto) (0-5) /lpf Urine Bacteria (Auto) (Negative) Adenovirus (PCR) (NotDetected) B. pertussis DNA (PCR) (NotDetected) B.parapertussis DNA PCR (NotDetected) C. pneumoniae DNA (PCR) (NotDetected) Coronavirus OC43 (PCR) (NotDetected) Coronavirus HKU1 (PCR) (NotDetected) Coronavirus 229E (PCR) (NotDetected) SARS-CoV-2 (PCR) (NotDetected) Coronavirus NL63 (PCR) (NotDetected) Human Metapneumovir PCR (NotDetected) Influenza Type A (PCR) (NotDetected) Influenza Type B (PCR) (NotDetected) M. pneumoniae (PCR) (NotDetected) Parainfluenza 1 (PCR) (NotDetected) Parainfluenza 2 (PCR) (NotDetected) Parainfluenza 3 (PCR) (NotDetected) Parainfluenza 4 (PCR) (NotDetected) RSV (PCR) (NotDetected) Entero/Rhino (PCR) (NotDetected) Imaging Data Attestation: I personally reviewed and interpreted this imaging study as follows: My Impression: Chest x-ray: No infiltrate no pneumothorax Radiologist's Impression: Chest CTA 03/16/23 09:49 CT angio chest PE protocol CLINICAL HISTORY: ro pe TECHNIQUE: Multidetector row helical CT of the chest was performed with angiographic protocol. Coronal and sagittal reformations were obtained. Coronal and sagittal MIPS were obtained from the axial data set and were submitted for review. Automated dose lowering techniques and/or adjustment according to patient size were utilized for this exam. CT DOSE: 1464.32 mGy.cm Comparison: Comparison is made to chest radiograph 03/16/2023 FINDINGS: Lungs and pleura: Small bilateral pleural effusions are seen with underlying atelectasis. Heart and pericardium: Heart size is normal. No pericardial effusion. Vessels: No evidence of pulmonary embolism. Mediastinum and daniel: Unremarkable. Chest wall and lower neck: Unremarkable. Abdomen: Unremarkable. Bones: Degenerative changes in the thoracic spine. IMPRESSION: 1. No pulmonary embolus. 2. Small bilateral pleural effusions with underlying atelectasis. ACT 112: Negative or not required by law. Electronically signed by: Geovany Rosales M.D. 03/16/2023 10:54 AM Chest X-Ray 03/16/23 09:49 XR chest 1V portable CLINICAL HISTORY: Chest pain, nonspecific TECHNIQUE: Single frontal radiograph of the chest was obtained. Comparison: Comparison is made to chest radiograph 10/29/2020 FINDINGS: No lines and tubes are seen. Cardiomegaly is noted. Elevation of left hemidiaphragm is seen. No evidence of pleural effusion or pneumothorax. IMPRESSION: Elevation of left hemidiaphragm is seen without acute abnormality. ACT 112: Negative or not required by law. Electronically signed by: Geovany Rosales M.D. 03/16/2023 10:[address] 03/16/23 09:49 CT head/brain wo con CLINICAL HISTORY: ams Technique: Contiguous axial CT images of the head were acquired from the base of the skull to the vertex without intravenous contrast administration. Images were viewed in brain, subdural and bone windows. Automated dose lowering techniques and/or adjustment according to patient size were utilized for this exam. Comparison: Comparison is made to CT head 10/29/2020 Findings: Areas of decreased attenuation are present in the periventricular and subcortical white matter bilaterally consistent with small vessel ischemic disease. Generalized cerebral atrophy with commensurate enlargement of the ventricles, sulci, and cisterns is also present. There is no acute intracranial hemorrhage or evidence of acute territorial infarction. No shift of the midline structures, mass effect, or extra-axial abnormalities are shown. Atherosclerotic calcifications are present in the intracranial segments of the internal carotid arteries. Imaged portions of the paranasal sinuses and mastoid air cells are clear. Bilateral ocular prostheses. There are no acute fractures of the calvaria or scalp swelling. Impression: No acute intracranial hemorrhage, no evidence of acute territorial infarction or other acute intracranial disease process. ACT 112: Negative or not required by law. Electronically signed by: Geovany Rosales M.D. 03/16/2023 10:49 AM ECG Data Attestation: I personally reviewed and interpreted this ECG as follows: Rate (beats per minute): 113 Rhythm: + sinus tachycardia ECG Intervals/blocks: + Normal PA and + Normal QT-c ECG ST segments: + Normal ST segments Additional Comments: QRS 74 MDM Narrative 0933: The patient was evaluated in room C6. A complete history and physical exam was performed Cardiac monitoring: An order was placed for continuous cardiac monitoring. The monitor shows a rate of 110 with sinus rhythm interpreted by me 1235: Vital signs stable. Labs show leukocytosis 17. Initial high-sensitivity troponin elevated. Lactic acid 2.7. Patient treated with broad-spectrum antibiotics. Urinalysis does not appear to be source of infection at this time. Bio fire negative. CT head and CTA chest negative. [facility] Impression & Plan Dyspnea, Elevated troponin, Lactic acidemia Discharge Plan Visit Data Chief Complaint: Shortness of Breath/Dyspnea Stated Complaint: SOB ED Provider: Larry Baca Discharge Problem: Dyspnea, Elevated troponin, Lactic acidemia Patient Disposition: Admitted As Inpatient Discharge Instructions Interventions: ED Discharge Assessment Last Done: 03/16/23 16:18 Discharge Problem: Dyspnea Qualifiers: Dyspnea type: unspecified Qualified Code(s): R06.00 - Dyspnea, unspecified
[2023-03-16] MEDS: cefTRIAXone SODIUM 2,000 MG in DEXTROSE 5 % MINI-B 50 ML IV SCH (18:24)
[2023-03-16] MEDS: ASPIRIN 81 MG ECTAB PO SCH (18:27)
[2023-03-16 18:28] LABS: Appearance Urine Clear (Clear); Bacteria Urine Automated Negative (Negative); Blood Urine Negative (Negative); Cast Urine Automated 0 /lpf (0-5); Color Urine Dark Yellow; Epithelial Cell Urine Auto 20-30 /lpf (0-5); Glucose Urine UA Negative (Negative); Ketones Urine Negative (Negative); Leukocyte Esterase Urine Trace (Negative); Nitrite Urine Positive (Negative); Protein Urine 1+ (Negative); RBC Urine Automated 0-4 /hpf (0-4); Specific Gravity Urine > 1.045 (1.000-1.030); Urobilinogen Urine Negative (Negative); pH Urine 6.5 (4.5-7.5)
[2023-03-16] MEDS: busPIRone 15 MG TAB PO SCH (18:28)
[2023-03-16] MEDS: FLUTICASONE PROPIONATE NA SPR 16 GM BTL NAE SCH (18:29)
[2023-03-16 18:31] LABS: Bilirubin Urine 2+ (Negative)
[2023-03-16] MEDS: SODIUM CHLORIDE 0.9% 1,000 ML IV SCH (18:32)
[2023-03-16] MEDS: DOCUSATE SODIUM 100 MG CAP PO SCH (20:15)
[2023-03-16] MEDS: CLOTRIMAZOLE 1% CR 15 GM TUBE TOP SCH (20:16)
[2023-03-16] MEDS: busPIRone 5 MG TAB PO SCH (20:16)
[2023-03-16] MEDS: TAMSULOSIN HCL 0.4 MG CAP PO SCH (20:16)
[2023-03-16] MEDS: NITROGLYCERIN 2% OINTMENT 30GM TUBE EXT SCH (20:19)
[2023-03-16] MEDS: HEPARIN SOD 5,000 UNIT/0.5 ML VIAL SQ SCH (20:30)
[2023-03-17] MEDS: OLOPATADINE~ORDER AWAITING ACTION SCH ×3 (02:24→15:47)
[2023-03-17] MEDS: SODIUM CHLORIDE 0.9% 1,000 ML IV SCH (02:24)
[2023-03-17 02:39] LABS: Hematocrit (blood only) 46.9 % (42.0-52.0); Hemoglobin 17.1 g/dl (14.0-18.0); Mean Corpuscular Hemoglobin 30.9 pg (25.0-34.0); Mean Corpuscular Hgb Conc 36.5 g/dL (32.0-36.0); Mean Corpuscular Volume 84.8 fL (80.0-100.0); Mean Platelet Volume 12.2 fL (9.4-12.4); Platelet Count 180 K/uL (130-400); RDW Standard Deviation 43.3 fL (36.4-46.3); Red Blood Count 5.53 M/uL (4.70-6.10); White Blood Count 14.31 K/ul (4.8-10.8)
[2023-03-17 03:01] LABS: Calcium 7.3 mg/dl (8.6-10.3); Potassium 3.7 mmol/L (3.5-5.1)
[2023-03-17 03:06] LABS: Est GFR (African American) 69.1 ml/min; Est GFR (Non-African American) 59.6 ml/min
[2023-03-17] MEDS ORDERED: LEVALBUTEROL 1.25MG/0.5ML NEB NEB PRN (05:47)
[2023-03-17] MEDS ORDERED: LEVALBUTEROL 1.25 MG/3 ML NEB ONE (05:58)
[2023-03-17] MEDS: LEVOTHYROXINE SODIUM 25 MCG TABLET PO SCH (05:58)
[2023-03-17] MEDS: HEPARIN SOD 5,000 UNIT/0.5 ML VIAL SQ SCH ×3 (05:58→20:20)
[2023-03-17] MEDS: ASPIRIN 81 MG ECTAB PO SCH (09:20)
[2023-03-17] MEDS: LORATADINE 10 MG TAB PO SCH (09:20)
[2023-03-17] MEDS: FINASTERIDE 5 MG TAB PO SCH (09:20)
[2023-03-17] MEDS: ATORVASTATIN 10 MG TAB PO SCH (09:20)
[2023-03-17] MEDS: DOCUSATE SODIUM 100 MG CAP PO SCH ×2 (09:20→20:19)
[2023-03-17] MEDS: busPIRone 5 MG TAB PO SCH ×2 (09:20→20:18)
[2023-03-17] MEDS: CLOTRIMAZOLE 1% CR 15 GM TUBE TOP SCH ×2 (09:20→20:19)
[2023-03-17] MEDS: FLUTICASONE PROPIONATE NA SPR 16 GM BTL NAE SCH (09:24)
[2023-03-17] MEDS: NITROGLYCERIN 2% OINTMENT 30GM TUBE EXT SCH ×2 (09:26→20:22)
--- NOTE | 2023-03-17 09:27 | Hospitalist Progress Note ---
Date of Service March 17, 2023 Assessment & Plan (1) Acute metabolic encephalopathy: Plan: Possibly from infectious etiology, developing sepsis. Initially thought secondary to developing sepsis secondary to UTI. Continue plan per #2. (2) UTI (urinary tract infection): Plan: Acute confusion, sweating, tachycardia, generalized weakness all point to a clinical urinary tract infection in a patient who has a higher risk for this. There is no bacteria on straight cath sample of urine taken in the ER, however there is some positive nitrate and leuk esterase present. Agree with continuing broad-spectrum antibiotics and will de-escalate to Rocephin pending urinary culture results and clinical improvement. Possible developing sepsis but appears more resuscitated at this time. Repeat lactate normal. Will trend bladder scan to ensure no issues with urinary retention in setting of possible infection. 03/17 WBC 14 (improved but still elevated), pt continues to be mildly tachycardic low 100s, also somewhat mildly tachypneic when conversing even though he denies any shortness of breath and is currently on RA. Also denies any chest pain. He appears jaundiced. Has distended abdomen but nontender. Blood cultx from ED so far negative. CT chest obtained in ED - negat. for PE or PNA. UA negat. for bacteria, ucultx is pending Cont. to concern for infectious etiology. Will obtain liver panel as pt appears jaundiced. Will also obtain CT abdomen/pelvis (3) Elevated troponin: Plan: Elevated troponin likely related to demand ischemia in the setting of possible developing sepsis. Troponin trended down Echo obtained - technically difficult study - LV was visualized in the subcostal view and partially via parasternal short axis view. LV systolic function is grossly normal. There is no pericardial effusion. (4) Weakness: Plan: Likely a result of some ongoing infection versus other insult. With elevated lactate and presentation above, more concerned with an infection at this point. He does have elevated leukocytosis but appears also very concentrated on his initial CBC. He also has an elevated creatinine consistent with prerenal azotemia and dehydration. Continue with plan of rehydration efforts and treatment of possible infection. PT/OT consult prior to discharge. GREGORIO- initial Cr in ED 1.6 now improved, down to 1.2 after IVf and abx. Baseline Cr around 1.1 (5) BPH (benign prostatic hyperplasia): Plan: Chronic, stable although there has been some increased urinary incontinence in the last month. Continue Avodart and Flomax per home regimen. Will rule out infection, follow-up with outpatient urologist. (6) Seizures: Plan: Per history he had seizures as a child but is not on antiepileptic drugs and has no recent seizures in the past few years. (7) Intellectual disability: Plan: Chronic intellectual disability but he is very functional. He is legally blind with prosthetic eyes bilaterally and illiterate, therefore needs some help with IADLs. He is able to feed himself and ambulate independently otherwise. Lives at [facility]. (8) Hypothyroidism: Plan: Chronic, stable. Current TSH 1.9 wnl. Continue levothyroxine at home dose. Lovenox Full code as confirmed with caregiver Dispo-telemetry Admission and Anticipated Discharge Date Admission Date: March 16, 2023 Subjective Pt seen in follow up of UTI (has hx of UTIs and follows w/ urology). Pt w/ some hx of intellectual disability but highly functioning and legally blind. Currently laying in bed in [facility] Seems to be mildly tachypneic when talking to me, however says that he feels better than yesterday and denies shortness of breath to me several times. He also adamantly denies any chest pain or any hx of chest pain. Denies dysuria, he is not sure about urinary frequency. Denies any abdominal pain. Abdomen seems somewhat distended. Not painful on palpation. Pt is not sure about his bowel movements. Skin appears somewhat jaundiced Review of Systems Review of Systems: All systems reviewed & are unremarkable except as noted in Subjective Physical Exam Physical Exam: CONSTITUTIONAL: WNWD M in NAD, however mildly tachypneic when conversing, appears somewhat jaundiced EYES: bilateral prosthetic eyes, normal conjunctivae ENT: external ear and nose normal NECK: supple RESPIRATORY: clear to auscultation bilaterally, no crackles, rales or wheezes, mildly tachypneic when conversing CARDIOVASCULAR: regular rate and rhythm, S1 and 2 heard without murmurs CHEST: inspection of chest normal GASTROINTESTINAL: soft, nontender, ND, no guarding, well healed vertical abdominal scar MUSCULOSKELETAL: generalized weakness without gross focal deficits, head is normocephalic and atraumatic SKIN: warm and dry, small abrasion on his right knee that is closed and well healing. skin appears jaundiced NEUROLOGIC: somewhat drowsy but awakens easily, and able to answer appropriately, normal speech,moves extremities Results & Data Results & Data Vital Signs (Past 12 Hours) Vital Signs Temp Pulse Pulse Resp BP Pulse Ox O2 Del Method 03/17/23 07:30 37.1 C 105 H 20 144/82 H 93 Room Air 03/17/23 06:04 98 H 18 92 Room Air 03/17/23 02:23 36.7 C 101 H 24 145/83 H 92 Room Air 03/17/23 00:09 Room Air 03/16/23 23:30 102 H 03/16/23 23:24 36.6 C 100 H 18 135/78 92 Room Air Laboratory Results 03/17/23 03/16/23 03/16/23 Range/Units 02:03 20:35 18:15 WBC 14.31 H (4.8-10.8) K/ul RBC 5.53 (4.70-6.10) M/uL Hgb 17.1 (14.0-18.0) g/dl POC Hgb (14.0-18.0) g/dl Hct 46.9 (42.0-52.0) % POC Hct (42-52) % MCV 84.8 (80.0-100.0) fL MCH 30.9 (25.0-34.0) pg MCHC 36.5 H (32.0-36.0) g/dL RDW Std Deviation 43.3 (36.4-46.3) fL RDW Coeff of Kobe 14.0 (11.5-14.5) % Plt Count 180 (130-400) K/uL MPV 12.2 (9.4-12.4) fL Immature Gran % (Auto) % Neut % (Auto) % Lymph % (Auto) % [place] % (Auto) % Eos % (Auto) % Baso % (Auto) % Neut # (Auto) (1.40-6.50) K/uL Lymph # (Auto) (1.20-3.40) K/uL [place] # (Auto) (0.11-0.59) K/uL Eos # (Auto) (0.00-0.50) K/uL Baso # (Auto) (0.00-0.20) K/uL Immature Gran # (Auto) (0.01-0.20) K/uL Polychromasia PT (9.0-12.0) Seconds INR (0.9-1.1) APTT (21-31) Seconds PTT Ratio VBG pH (7.36-7.41) VBG pCO2 (38-50) mmHg VBG pO2 mmHg VBG HCO3 mmol/L VBG O2 Saturation % VBG Base Excess mEq/L POC Sodium (135-144) mmol/L Sodium 138 (136-145) mmol/L POC Potassium (3.3-5.0) mmol/L Potassium 3.7 (3.5-5.1) mmol/L POC Chloride (101-112) mmol/L Chloride 108 H (98-107) mmol/L Carbon Dioxide 19 L (21-32) mmol/L POC Total CO2 (24-31) mmol/L Anion Gap 11 (3-11) POC Anion Gap (16-25) mmol/L POC BUN (7-18) mg/dl BUN 36 H (6-23) mg/dl Creatinine 1.20 D (0.6-1.4) mg/dl POC Creatinine (0.6-1.3) mg/dl Est Cr Clr Drug Dosing 53.0 ml/min Est GFR ( Amer) 69.1 ml/min Est GFR (Non-Af Amer) 59.6 ml/min BUN/Creatinine Ratio 30.0 H (10-20) Glucose 144 H (70-99(Fasting)) mg/dl POC Glucose (other) (70-99) mg/dl Lactate (0.4-2.0) mmol/L Calcium 7.3 L (8.6-10.3) mg/dl POC Ioniz Calcium Ayanna (1.12-1.32) mmol/l Troponin I High Sens 16.9 D 22.7 H (0-20) pg/ml Lipase (11-82) U/L TSH (0.300-4.500) uIu/ml Urine Color Dark Yellow Urine Appearance Clear (Clear) Urine pH 6.5 (4.5-7.5) Ur Specific [place] > 1.045 H (1.000-1.030) Urine Protein 1+ H (Negative) Urine Glucose (UA) Negative (Negative) Urine Ketones Negative (Negative) Urine Blood Negative (Negative) Urine Nitrite Positive A (Negative) Urine Bilirubin 2+ H (Negative) Urine Urobilinogen Negative (Negative) Ur Leukocyte Esterase Trace H (Negative) Urine WBC (Auto) 10-30 H (0-5) /hpf Urine RBC (Auto) 0-4 (0-4) /hpf U Hyaline Cast (Auto) 0 (0-5) /lpf U Epithel Cells (Auto) 20-30 H (0-5) /lpf Urine Bacteria (Auto) Negative (Negative) Adenovirus (PCR) (NotDetected) B. pertussis DNA (PCR) (NotDetected) B.parapertussis DNA PCR (NotDetected) C. pneumoniae DNA (PCR) (NotDetected) Coronavirus OC43 (PCR) (NotDetected) Coronavirus HKU1 (PCR) (NotDetected) Coronavirus 229E (PCR) (NotDetected) SARS-CoV-2 (PCR) (NotDetected) Coronavirus NL63 (PCR) (NotDetected) Human Metapneumovir PCR (NotDetected) Influenza Type A (PCR) (NotDetected) Influenza Type B (PCR) (NotDetected) M. pneumoniae (PCR) (NotDetected) Parainfluenza 1 (PCR) (NotDetected) Parainfluenza 2 (PCR) (NotDetected) Parainfluenza 3 (PCR) (NotDetected) Parainfluenza 4 (PCR) (NotDetected) RSV (PCR) (NotDetected) Entero/Rhino (PCR) (NotDetected) 03/16/23 03/16/23 03/16/23 Range/Units 15:40 11:56 11:50 WBC (4.8-10.8) K/ul RBC (4.70-6.10) M/uL Hgb (14.0-18.0) g/dl POC Hgb (14.0-18.0) g/dl Hct (42.0-52.0) % POC Hct (42-52) % MCV (80.0-100.0) fL MCH (25.0-34.0) pg MCHC (32.0-36.0) g/dL RDW Std Deviation (36.4-46.3) fL RDW Coeff of Kobe (11.5-14.5) % Plt Count (130-400) K/uL MPV (9.4-12.4) fL Immature Gran % (Auto) % Neut % (Auto) % Lymph % (Auto) % [place] % (Auto) % Eos % (Auto) % Baso % (Auto) % Neut # (Auto) (1.40-6.50) K/uL Lymph # (Auto) (1.20-3.40) K/uL [place] # (Auto) (0.11-0.59) K/uL Eos # (Auto) (0.00-0.50) K/uL Baso # (Auto) (0.00-0.20) K/uL Immature Gran # (Auto) (0.01-0.20) K/uL Polychromasia PT (9.0-12.0) Seconds INR (0.9-1.1) APTT (21-31) Seconds PTT Ratio VBG pH (7.36-7.41) VBG pCO2 (38-50) mmHg VBG pO2 mmHg VBG HCO3 mmol/L VBG O2 Saturation % VBG Base Excess mEq/L POC Sodium (135-144) mmol/L Sodium (136-145) mmol/L POC Potassium (3.3-5.0) mmol/L Potassium (3.5-5.1) mmol/L POC Chloride (101-112) mmol/L Chloride (98-107) mmol/L Carbon Dioxide (21-32) mmol/L POC Total CO2 (24-31) mmol/L Anion Gap (3-11) POC Anion Gap (16-25) mmol/L POC BUN (7-18) mg/dl BUN (6-23) mg/dl Creatinine (0.6-1.4) mg/dl POC Creatinine (0.6-1.3) mg/dl Est Cr Clr Drug Dosing ml/min Est GFR ( Amer) ml/min Est GFR (Non-Af Amer) ml/min BUN/Creatinine Ratio (10-20) Glucose (70-99(Fasting)) mg/dl POC Glucose (other) (70-99) mg/dl Lactate 1.4 2.7 H* (0.4-2.0) mmol/L Calcium (8.6-10.3) mg/dl POC Ioniz Calcium Ayanna (1.12-1.32) mmol/l Troponin I High Sens 30.2 H (0-20) pg/ml Lipase (11-82) U/L TSH 1.942 (0.300-4.500) uIu/ml Urine Color Urine Appearance (Clear) Urine pH (4.5-7.5) Ur Specific [place] (1.000-1.030) Urine Protein (Negative) Urine Glucose (UA) (Negative) Urine Ketones (Negative) Urine Blood (Negative) Urine Nitrite (Negative) Urine Bilirubin (Negative) Urine Urobilinogen (Negative) Ur Leukocyte Esterase (Negative) Urine WBC (Auto) (0-5) /hpf Urine RBC (Auto) (0-4) /hpf U Hyaline Cast (Auto) (0-5) /lpf U Epithel Cells (Auto) (0-5) /lpf Urine Bacteria (Auto) (Negative) Adenovirus (PCR) (NotDetected) B. pertussis DNA (PCR) (NotDetected) B.parapertussis DNA PCR (NotDetected) C. pneumoniae DNA (PCR) (NotDetected) Coronavirus OC43 (PCR) (NotDetected) Coronavirus HKU1 (PCR) (NotDetected) Coronavirus 229E (PCR) (NotDetected) SARS-CoV-2 (PCR) (NotDetected) Coronavirus NL63 (PCR) (NotDetected) Human Metapneumovir PCR (NotDetected) Influenza Type A (PCR) (NotDetected) Influenza Type B (PCR) (NotDetected) M. pneumoniae (PCR) (NotDetected) Parainfluenza 1 (PCR) (NotDetected) Parainfluenza 2 (PCR) (NotDetected) Parainfluenza 3 (PCR) (NotDetected) Parainfluenza 4 (PCR) (NotDetected) RSV (PCR) (NotDetected) Entero/Rhino (PCR) (NotDetected) 03/16/23 03/16/23 03/16/23 Range/Units 10:55 10:18 10:05 WBC (4.8-10.8) K/ul RBC (4.70-6.10) M/uL Hgb (14.0-18.0) g/dl POC Hgb 19.4 H (14.0-18.0) g/dl Hct (42.0-52.0) % POC Hct 57 H (42-52) % MCV (80.0-100.0) fL MCH (25.0-34.0) pg MCHC (32.0-36.0) g/dL RDW Std Deviation (36.4-46.3) fL RDW Coeff of Kobe (11.5-14.5) % Plt Count (130-400) K/uL MPV (9.4-12.4) fL Immature Gran % (Auto) % Neut % (Auto) % Lymph % (Auto) % [place] % (Auto) % Eos % (Auto) % Baso % (Auto) % Neut # (Auto) (1.40-6.50) K/uL Lymph # (Auto) (1.20-3.40) K/uL [place] # (Auto) (0.11-0.59) K/uL Eos # (Auto) (0.00-0.50) K/uL Baso # (Auto) (0.00-0.20) K/uL Immature Gran # (Auto) (0.01-0.20) K/uL Polychromasia PT (9.0-12.0) Seconds INR (0.9-1.1) APTT (21-31) Seconds PTT Ratio VBG pH 7.36 (7.36-7.41) VBG pCO2 45 (38-50) mmHg VBG pO2 23 mmHg VBG HCO3 25 mmol/L VBG O2 Saturation < 60.0 % VBG Base Excess -0.4 mEq/L POC Sodium 135 (135-144) mmol/L Sodium (136-145) mmol/L POC Potassium 3.4 (3.3-5.0) mmol/L Potassium (3.5-5.1) mmol/L POC Chloride 98 L (101-112) mmol/L Chloride (98-107) mmol/L Carbon Dioxide (21-32) mmol/L POC Total CO2 23 L (24-31) mmol/L Anion Gap (3-11) POC Anion Gap 18.0 (16-25) mmol/L POC BUN 36 H (7-18) mg/dl BUN (6-23) mg/dl Creatinine (0.6-1.4) mg/dl POC Creatinine 1.4 H (0.6-1.3) mg/dl Est Cr Clr Drug Dosing ml/min Est GFR ( Amer) ml/min Est GFR (Non-Af Amer) ml/min BUN/Creatinine Ratio (10-20) Glucose (70-99(Fasting)) mg/dl POC Glucose (other) 177 H (70-99) mg/dl Lactate (0.4-2.0) mmol/L Calcium (8.6-10.3) mg/dl POC Ioniz Calcium Ayanna 0.93 L (1.12-1.32) mmol/l Troponin I High Sens (0-20) pg/ml Lipase (11-82) U/L TSH (0.300-4.500) uIu/ml Urine Color Dark Yellow Urine Appearance Clear (Clear) Urine pH 6.0 (4.5-7.5) Ur Specific [place] > 1.045 H (1.000-1.030) Urine Protein 1+ H (Negative) Urine Glucose (UA) Negative (Negative) Urine Ketones Negative (Negative) Urine Blood Negative (Negative) Urine Nitrite Positive A (Negative) Urine Bilirubin 2+ H (Negative) Urine Urobilinogen Negative (Negative) Ur Leukocyte Esterase Trace H (Negative) Urine WBC (Auto) 1-5 (0-5) /hpf Urine RBC (Auto) 5-10 H (0-4) /hpf U Hyaline Cast (Auto) 5-10 H (0-5) /lpf U Epithel Cells (Auto) >30 H (0-5) /lpf Urine Bacteria (Auto) Negative (Negative) Adenovirus (PCR) (NotDetected) B. pertussis DNA (PCR) (NotDetected) B.parapertussis DNA PCR (NotDetected) C. pneumoniae DNA (PCR) (NotDetected) Coronavirus OC43 (PCR) (NotDetected) Coronavirus HKU1 (PCR) (NotDetected) Coronavirus 229E (PCR) (NotDetected) SARS-CoV-2 (PCR) (NotDetected) Coronavirus NL63 (PCR) (NotDetected) Human Metapneumovir PCR (NotDetected) Influenza Type A (PCR) (NotDetected) Influenza Type B (PCR) (NotDetected) M. pneumoniae (PCR) (NotDetected) Parainfluenza 1 (PCR) (NotDetected) Parainfluenza 2 (PCR) (NotDetected) Parainfluenza 3 (PCR) (NotDetected) Parainfluenza 4 (PCR) (NotDetected) RSV (PCR) (NotDetected) Entero/Rhino (PCR) (NotDetected) 03/16/23 03/16/23 Range/Units 10:00 09:25 WBC 17.70 H (4.8-10.8) K/ul RBC 6.19 H (4.70-6.10) M/uL Hgb 19.1 H (14.0-18.0) g/dl POC Hgb (14.0-18.0) g/dl Hct 53.6 H (42.0-52.0) % POC Hct (42-52) % MCV 86.6 (80.0-100.0) fL MCH 30.9 (25.0-34.0) pg MCHC 35.6 (32.0-36.0) g/dL RDW Std Deviation 44.3 (36.4-46.3) fL RDW Coeff of Kobe 14.1 (11.5-14.5) % Plt Count 263 (130-400) K/uL MPV 11.9 (9.4-12.4) fL Immature Gran % (Auto) 0.5 % Neut % (Auto) 90.8 % Lymph % (Auto) 3.1 % [place] % (Auto) 5.3 % Eos % (Auto) 0.0 % Baso % (Auto) 0.3 % Neut # (Auto) 16.06 H (1.40-6.50) K/uL Lymph # (Auto) 0.55 L (1.20-3.40) K/uL [place] # (Auto) 0.94 H (0.11-0.59) K/uL Eos # (Auto) 0.00 (0.00-0.50) K/uL Baso # (Auto) 0.06 (0.00-0.20) K/uL Immature Gran # (Auto) 0.09 (0.01-0.20) K/uL Polychromasia 1+ PT 12.2 H (9.0-12.0) Seconds INR 1.1 (0.9-1.1) APTT 26 (21-31) Seconds PTT Ratio 0.9 VBG pH (7.36-7.41) VBG pCO2 (38-50) mmHg VBG pO2 mmHg VBG HCO3 mmol/L VBG O2 Saturation % VBG Base Excess mEq/L POC Sodium (135-144) mmol/L Sodium 133 L (136-145) mmol/L POC Potassium (3.3-5.0) mmol/L Potassium 3.5 (3.5-5.1) mmol/L POC Chloride (101-112) mmol/L Chloride 97 L (98-107) mmol/L Carbon Dioxide 22 (21-32) mmol/L POC Total CO2 (24-31) mmol/L Anion Gap 14 H (3-11) POC Anion Gap (16-25) mmol/L POC BUN (7-18) mg/dl BUN 33 H (6-23) mg/dl Creatinine 1.60 H (0.6-1.4) mg/dl POC Creatinine (0.6-1.3) mg/dl Est Cr Clr Drug Dosing 40.4 ml/min Est GFR ( Amer) 48.8 ml/min Est GFR (Non-Af Amer) 42.1 ml/min BUN/Creatinine Ratio 20.6 H (10-20) Glucose 193 H (70-99(Fasting)) mg/dl POC Glucose (other) (70-99) mg/dl Lactate (0.4-2.0) mmol/L Calcium 8.1 L (8.6-10.3) mg/dl POC Ioniz Calcium Ayanna (1.12-1.32) mmol/l Troponin I High Sens 22.3 H (0-20) pg/ml Lipase 50 (11-82) U/L TSH (0.300-4.500) uIu/ml Urine Color Urine Appearance (Clear) Urine pH (4.5-7.5) Ur Specific [place] (1.000-1.030) Urine Protein (Negative) Urine Glucose (UA) (Negative) Urine Ketones (Negative) Urine Blood (Negative) Urine Nitrite (Negative) Urine Bilirubin (Negative) Urine Urobilinogen (Negative) Ur Leukocyte Esterase (Negative) Urine WBC (Auto) (0-5) /hpf Urine RBC (Auto) (0-4) /hpf U Hyaline Cast (Auto) (0-5) /lpf U Epithel Cells (Auto) (0-5) /lpf Urine Bacteria (Auto) (Negative) Adenovirus (PCR) Not Detected (NotDetected) B. pertussis DNA (PCR) Not Detected (NotDetected) B.parapertussis DNA PCR Not Detected (NotDetected) C. pneumoniae DNA (PCR) Not Detected (NotDetected) Coronavirus OC43 (PCR) Not Detected (NotDetected) Coronavirus HKU1 (PCR) Not Detected (NotDetected) Coronavirus 229E (PCR) Not Detected (NotDetected) SARS-CoV-2 (PCR) Not Detected (NotDetected) Coronavirus NL63 (PCR) Not Detected (NotDetected) Human Metapneumovir PCR Not Detected (NotDetected) Influenza Type A (PCR) Not Detected (NotDetected) Influenza Type B (PCR) Not Detected (NotDetected) M. pneumoniae (PCR) Not Detected (NotDetected) Parainfluenza 1 (PCR) Not Detected (NotDetected) Parainfluenza 2 (PCR) Not Detected (NotDetected) Parainfluenza 3 (PCR) Not Detected (NotDetected) Parainfluenza 4 (PCR) Not Detected (NotDetected) RSV (PCR) Not Detected (NotDetected) Entero/Rhino (PCR) Not Detected (NotDetected) Medications Administered Current Inpatient Medications Acetaminophen (Acetaminophen 325 Mg Tab) 650 mg PO Q4H PRN PRN Reason: Pain or Fever Stop: 04/15/23 16:30 Aspirin (Aspirin 81 Mg Ectab) 81 mg PO TODAY@0800 [facility] Stop: 04/15/23 16:30 Last Admin: 03/17/23 09:20 Dose: 81 mg Atorvastatin Calcium (Atorvastatin 10 Mg Tab) 10 mg PO 0800 [facility] Stop: 04/16/23 07:59 Last Admin: 03/17/23 09:20 Dose: 10 mg Buspirone HCl (Buspirone 5 Mg Tab) 10 mg PO 0800,1999 [facility] Stop: 04/15/23 19:59 Last Admin: 03/17/23 09:20 Dose: 10 mg Buspirone HCl (Buspirone 15 Mg Tab) 15 mg PO 1600 [facility] Stop: 04/15/23 16:59 Last Admin: 03/16/23 18:28 Dose: 15 mg Clotrimazole (Clotrimazole 1% Cr 15 Gm Tube) 1 appln TOP BID@08 [facility] Stop: 04/15/23 19:59 Last Admin: 03/17/23 09:20 Dose: Not Given Docusate Sodium (Docusate Sodium 100 Mg Cap) 100 mg PO 08 [facility] Stop: 04/15/23 19:59 Last Admin: 03/17/23 09:20 Dose: 100 mg Finasteride (Finasteride 5 Mg Tab) 5 mg PO 0800 [facility] Stop: 04/16/23 07:59 Last Admin: 03/17/23 09:20 Dose: 5 mg Fluticasone Propionate (Fluticasone Propionate Na Spr 16 Gm Btl) 2 sprays NICOLAS TODAY@0800 [facility] Stop: 04/15/23 16:30 Last Admin: 03/16/23 18:29 Dose: Not Given Heparin Sodium (Porcine) (Heparin Sod 5,000 Unit/0.5 Ml Vial) 5,000 units SQ Q8 [facility] Stop: 04/15/23 21:59 Last Admin: 03/17/23 05:58 Dose: 5,000 units Ceftriaxone Sodium 2,000 mg/ (Dextrose) 50 mls @ 100 mls/hr IV Q24H [facility]; Protocol Stop: 03/21/23 17:59 Last Infusion: 03/16/23 19:14 Dose: Infused Levalbuterol HCl (Levalbuterol 1.25mg/0.5ml Neb) 1.25 mg NEB Q4H PRN; Protocol PRN Reason: Shortness Of Breath Or Wheezing Stop: 04/16/23 05:59 Last Admin: 03/17/23 06:04 Dose: 1.25 mg Levothyroxine Sodium (Levothyroxine Sodium 25 Mcg Tablet) 25 mcg PO DAILYBB [facility] Stop: 04/16/23 06:29 Last Admin: 03/17/23 05:58 Dose: 25 mcg Loratadine (Loratadine 10 Mg Tab) 10 mg PO 0800 [facility] Stop: 04/16/23 07:59 Last Admin: 03/17/23 09:20 Dose: 10 mg Miscellaneous (Olopatadine~Order Awaiting Action) 1 each N/A QS [facility] Stop: 04/16/23 00:00 Last Admin: 03/17/23 02:24 Dose: 1 each Nitroglycerin (Nitroglycerin 2% Ointment 30gm Tube) 0.5 inch EXT 799,1999 [facility] Stop: 04/15/23 19:59 Last Admin: 03/16/23 20:19 Dose: 0.5 inch Ondansetron HCl (Ondansetron Inj 2 Mg/Ml 2 Ml Vial) 4 mg IV Q6H PRN PRN Reason: Nausea Stop: 04/15/23 16:30 Polyethylene Glycol (Polyethylene (Miralax) 17 Gm Pack) 17 gm PO DAILY PRN PRN Reason: Constipation Stop: 04/15/23 16:30 Tamsulosin HCl (Tamsulosin Hcl 0.4 Mg Cap) 0.4 mg PO 1999 [facility] Stop: 04/15/23 19:59 Last Admin: 03/16/23 20:16 Dose: 0.4 mg
--- NOTE | 2023-03-17 11:59 | Electrocardiogram Report ---
Test Reason : Blood Pressure : / mmHG Vent. Rate : 098 BPM Atrial Rate : 098 BPM P-R Int : 136 ms QRS Dur : 082 ms QT Int : 318 ms P-R-T Axes : 057 038 197 degrees QTc Int : 405 ms Normal sinus rhythm T wave abnormality, consider inferior ischemia Abnormal ECG When compared with ECG of 16-MAR-2023 09:12, (unconfirmed) Premature ventricular complexes are no longer Present Nonspecific T wave abnormality, worse in Inferior leads Nonspecific T wave abnormality, worse in Anterolateral leads Confirmed by Abraham Mosley ([id number]) on 03/17/2023 11:59:31 AM Referred By: REFERRED SELF Confirmed By:Umair Mosley
--- NOTE | 2023-03-17 12:04 | Electrocardiogram Report ---
Test Reason : Blood Pressure : / mmHG Vent. Rate : 113 BPM Atrial Rate : 113 BPM P-R Int : 140 ms QRS Dur : 074 ms QT Int : 332 ms P-R-T Axes : 060 028 107 degrees QTc Int : 455 ms Sinus tachycardia with occasional Premature ventricular complexes and premature atrial complexes Nonspecific ST and T wave abnormality Abnormal ECG When compared with ECG of 29-OCT-2020 11:45, Premature ventricular complexes are now Present Vent. rate has increased BY 37 BPM Non-specific change in ST segment in Anterior leads Nonspecific T wave abnormality now evident in Anterior leads Confirmed by Abraham Mosley ([id number]) on 03/17/2023 12:04:19 PM Referred By: REFERRED SELF Confirmed By:Umair Mosley
[2023-03-17] MEDS ORDERED: ALBUT/IPRATROP 3MG/0.5MG NEB 3 ML VIAL NEB PRN (14:58)
[2023-03-17] MEDS: busPIRone 15 MG TAB PO SCH (15:51)
[2023-03-17] MEDS: cefTRIAXone SODIUM 2,000 MG in DEXTROSE 5 % MINI-B 50 ML IV SCH (17:15)
[2023-03-17 17:24] LABS: Albumin Level 2.8 gm/dl (3.4-5.0); Bilirubin Direct 5.3 mg/dl (0-0.2); Bilirubin,Total 9.1 mg/dl (0.2-1.0); Total Protein 5.5 gm/dl (6.0-8.3)
[2023-03-17] MEDS ORDERED: PIPERACILLIN/TAZOBACTAM 4.5 GM in DEXTROSE 5% MINI-B 100 ML IV STA (18:30)
[2023-03-17] MEDS ORDERED: metroNIDAZOLE 500 MG/100 ML BAG IV STA (18:30)
[2023-03-17] MEDS: LACTATED RINGER'S 1,000 ML IV SCH (18:37)
--- NOTE | 2023-03-17 20:02 | CT Scan Report ---
Exam(s): CT ABDOMEN + PELVIS Without Contrast EXAM: CT Abdomen and Pelvis Without Intravenous Contrast CLINICAL HISTORY: Reason for exam: Possible sepsis, source? TECHNIQUE: Axial computed tomography images of the abdomen and pelvis without intravenous contrast. CTDI is 25.5 mGy and DLP is 1320.59 mGy-cm. Automated exposure control was utilized for the study. A dose lowering technique was utilized adhering to the principles of ALARA. COMPARISON: No relevant prior studies available. FINDINGS: Small-moderate bilateral pleural effusions. Associated basilar atelectasis, left greater than right. Peripancreatic and other retroperitoneal edema raises the possibility of acute pancreatitis. Recommend correlation with enzymes. Biliary dilation, predominantly intrahepatic. Consider ultrasound and/or MRCP. Small volume ascites and generalized edema/anasarca. This could explain mesorectal edema, but correlate for impaction and stercoral proctitis. Gaseous distention of the stomach. No perforation. Diverticula to the leftward urinary bladder. Dense bladder contents could reflect blood products. Question hematuria. No hydronephrosis. Aortoiliac atherosclerosis. No AAA. Operative changes of the abdominal wall. Fatty inguinal hernias. Thoracolumbar spondylosis and hyperostosis. No acute fracture. IMPRESSION: Peripancreatic and other retroperitoneal edema raises the possibility of acute pancreatitis. Recommend correlation with enzymes. Biliary dilation, predominantly intrahepatic. Consider ultrasound and/or MRCP. Small volume ascites. Anasarca could explain mesorectal edema, but correlate for stercoral proctitis. Gaseous distention of the stomach. No perforation. Urinary bladder diverticula with dense contents. Question hematuria Electronically signed by: Chuck Pina M.D. 03/17/23 20:01 PM
[2023-03-17] MEDS: TAMSULOSIN HCL 0.4 MG CAP PO SCH (20:20)
[2023-03-18] MEDS: PIPERACILLIN/TAZOBACTAM 4.5 GM in DEXTROSE 5% MINI-B 100 ML IV SCH ×3 (00:10→17:33)
[2023-03-18] MEDS: OLOPATADINE~ORDER AWAITING ACTION SCH ×3 (00:11→17:07)
--- NOTE | 2023-03-18 01:45 | Magnetic Resonance Report ---
Exam(s): MRI MRCP EXAM: MR Abdomen Without Intravenous Contrast, MRCP Protocol CLINICAL HISTORY: Reason for exam: elevated lft. TECHNIQUE: Multiplanar magnetic resonance images of the abdomen without intravenous contrast using MRCP protocol. COMPARISON: No relevant prior studies available. FINDINGS: Limitations: Exam significantly limited secondary to patient respiratory motion. Lower thorax: Large bilateral pleural effusions right greater than left. Bile ducts: Unremarkable. No stones. No ductal dilation. Gallbladder: Cholelithiasis mild intrahepatic biliary ductal dilatation. Cholelithiasis with pericholecystic fluid. Liver: Unremarkable. Pancreas: Unremarkable. No ductal dilation. Spleen: Unremarkable. No splenomegaly. Adrenals: Unremarkable. No mass. Kidneys and ureters: Unremarkable. No hydronephrosis. Stomach and bowel: Unremarkable. No obstruction. IMPRESSION: 1. Findings consistent with acute cholecystitis 2. Large bilateral pleural effusions right greater than left 3. Limited exam as described above Electronically signed by: Demarcus Hinkle MD 03/18/23 01:44 AM
[2023-03-18] MEDS ORDERED: SODIUM CHLORIDE 0.9% 500 ML IV SCH (04:15)
[2023-03-18] MEDS: HEPARIN SOD 5,000 UNIT/0.5 ML VIAL SQ SCH (05:12)
[2023-03-18] MEDS: LEVOTHYROXINE SODIUM 25 MCG TABLET PO SCH (05:12)
[2023-03-18] MEDS ORDERED: METOPROLOL TARTRATE 1 MG/ML VIAL IV STA ×3 (05:17→06:33)
[2023-03-18] MEDS ORDERED: SODIUM CHLORIDE 0.9% 1,000 ML IV SCH (05:30)
[2023-03-18 05:49] LABS: Basophils # (auto) 0.02 K/uL (0.00-0.20); Basophils % (auto) 0.2 %; Hematocrit (blood only) 40.5 % (42.0-52.0); Hemoglobin 14.6 g/dl (14.0-18.0); Immature Granulocytes # (auto) 0.02 K/uL (0.01-0.20); Immature Granulocytes % (auto) 0.2 %; Lymphocytes # (auto) 0.37 K/uL (1.20-3.40); Lymphocytes % (auto) 3.5 %; Mean Corpuscular Hemoglobin 30.4 pg (25.0-34.0); Mean Corpuscular Volume 84.4 fL (80.0-100.0); Mean Platelet Volume 11.7 fL (9.4-12.4); Monocytes # (auto) 0.82 K/uL (0.11-0.59); Monocytes % (auto) 7.8 %; Neutrophils # (auto) 9.26 K/uL (1.40-6.50); Neutrophils % (auto) 88.3 %; Platelet Count 156 K/uL (130-400); RDW Coefficient of Variation 14.5 % (11.5-14.5); White Blood Count 10.49 K/ul (4.8-10.8)
[2023-03-18 05:59] LABS: Albumin Level 2.7 gm/dl (3.4-5.0); BUN Creatinine Ratio 27.9 (10-20); Bilirubin,Total 7.1 mg/dl (0.2-1.0); Calcium 7.3 mg/dl (8.6-10.3); Creatinine Clr Calc Pharmacy 61.8 ml/min; Est GFR (African American) 82.2 ml/min; Est GFR (Non-African American) 70.9 ml/min; Globulin 2.6 gm/dl (2.5-4.0); Potassium 3.3 mmol/L (3.5-5.1); Total Protein 5.3 gm/dl (6.0-8.3)
[2023-03-18 06:06] LABS: Troponin I High Sensitivity 18.8 pg/ml (0-20)
[2023-03-18] MEDS: LACTATED RINGER'S 1,000 ML IV SCH (06:22)
--- NOTE | 2023-03-18 08:49 | Electrocardiogram Report ---
Test Reason : Blood Pressure : / mmHG Vent. Rate : 148 BPM Atrial Rate : 166 BPM P-R Int : 000 ms QRS Dur : 082 ms QT Int : 266 ms P-R-T Axes : 000 041 214 degrees QTc Int : 417 ms Atrial fibrillation with rapid ventricular response Abnormal ECG When compared with ECG of 17-MAR-2023 05:35, Atrial fibrillation has replaced Sinus rhythm Vent. rate has increased BY 50 BPM Confirmed by Abraham Mosley ([id number]) on 03/18/2023 8:48:39 AM Referred By: REFERRED SELF Confirmed By:Umair Mosley
--- NOTE | 2023-03-18 09:19 | Ultrasound Report ---
ABDOMINAL ULTRASOUND, RIGHT UPPER QUADRANT HISTORY: Acutely elevated LFTs elevated bili, elev. LFts. COMPARISON: MRCP and CT abdomen and pelvis studies 03/17/2023 FINDINGS: Pancreas: By bowel gas. Liver: No hepatic mass or marginal nodularity of the parenchyma. Intrahepatic biliary ductal dilation . Gallbladder: Stone filled gallbladder demonstrates wall thickening measuring up to 3-4 mm. Pericholec ystic edema also noted. Negative sonographic Rosario's sign. CBD: 0.8 cm. Right kidney: No hydronephrosis. Right pleural effusion redemonstrated. IMPRESSION: 1. Cholelithiasis with findings suggestive of acute cholecystitis redemonstrated. 2. Intrahepatic and extrahepatic biliary ductal dilation is again seen. 3. Right pleural effusion redemonstrated. ACT 112: Negative or not required by law. Electronically signed by: Delta Reynoso M.D. 03/18/2023 9:17 AM
[2023-03-18] MEDS ORDERED: POTASSIUM CHLORIDE 20 MEQ/15 ML UDC PO STA (09:44)
--- NOTE | 2023-03-18 09:46 | Surgery Consultation ---
Date of Consultation March 18, 2023 Assessment & Plan (1) Acute cholecystitis due to biliary calculus: Assessment: Patient is a 73 years old gentleman on the [facility] for weakness, sweat and tachycardia, patient had a CT scan MRCP ultrasound diagnosis of acute cholecystitis. Bilirubin 7.1. WBC 10,000. Plan: Based on the history physical exam CT scan and MRI ultrasound study. Likely the patient had the acute cholecystitis , choledocholithiasis and cholangitis. Recommendation-consult GI for ERCP, patient needed transfer to higher level care if no ERCP available in this hospital. pt needs ERCP svetlana for remove CBD stone to release obstruction. pt can have laparoscopic cholecystectomy after ERCP. continue iv antibiotic, D/W hospitalist. (2) Choledocholithiasis: see above (3) Cholangitis: see above History of Present Illness Reason for Consultation: acute cholecystitis Requesting Physician: gonzalo nieto MD Attending Physician: Luis Carlos Mcdowell MD History of Present Illness CC: weakness, HPI: pt is a 73 year-old male with PMH- intellectual disability, seizures, BPH, hypothyroidism, and UTI. pt was admitted to hospital for 3 days history weakness, poor intake, sweaty, tachycardia. pt denies significant abdominal pain. no nausea or vomiting, no diarrhea, no fever. labs- WBC 10,000, (t ) bilirubin 7.1, pt had CT scan diagnosis- acute cholecystitis, MRCP and U/S study- acute cholecystitis. I was asked for consult acute cholecystitis. Allergies Allergy/AdvReac Type Severity Reaction Status Date / Time bacitracin Allergy Unknown Unknown Verified 07/30/22 10:45 [From Neosporin ([id number])] neomycin Allergy Unknown Unknown Verified 07/30/22 10:45 [From Neosporin ([id number])] polymyxin B Allergy Unknown Unknown Verified 07/30/22 10:45 [From Neosporin ([id number])] Home Medications Medication Instructions Recorded Confirmed Type levothyroxine 25 mcg tablet 25 mcg PO .@0700 03/14/20 03/16/23 History (Synthroid) acetaminophen 325 mg tablet 650 mg PO Q4H PRN 09/19/20 03/16/23 History (Tylenol) FEVER/HEADACHE/MINOR ACHES/PAIN aspirin 81 mg tablet,delayed 81 mg PO . @0800 09/19/20 12/25/23 History release atorvastatin 10 mg tablet 10 mg PO .@79909/19/20 03/16/23 History buspirone 10 mg tablet 10 mg PO .@199909/19/20 03/16/23 History fluticasone propionate 50 2 spray intranasal .@79909/19/20 03/16/23 History mcg/actuation nasal spray,suspension multivitamin (Daily-Chidi tablet) 1 tab PO .@79909/19/20 03/16/23 History Baby Shampoo See Rx Instructions .Route .COMPLEX 03/16/23 03/16/23 History Nitro 0.2% Ointment/Petroleum 1 applic [place] .@199903/16/23 03/16/23 History Thera Breath Oral Rinse 2 cap PO .@199903/16/23 03/16/23 History albuterol sulfate 90 mcg/actuation 2 puff inhalation Q6H PRN 03/16/23 03/16/23 History aerosol inhaler COUGH/WHEEZING buspirone 15 mg tablet 15 mg PO .@159903/16/23 03/16/23 History clotrimazole 1 % topical cream 1 applic topical BID@03/16/23 03/16/23 History docusate sodium 100 mg capsule 100 mg PO . @199903/16/23 03/16/23 History dutasteride 0.5 mg capsule 0.5 mg PO .@79903/16/23 03/16/23 History (Avodart) fluoride (sodium) 1.1 % dental 1 applic dental .@199903/16/23 03/16/23 History paste loperamide 2 mg capsule (Imodium See Rx Instructions .Route 03/16/23 03/16/23 History A-D) .COMPLEX PRN Diarrhea loratadine 10 mg tablet 10 mg PO .@79903/16/23 03/16/23 History magnesium hydroxide 400 mg/5 mL See Rx Instructions .Route 03/16/23 03/16/23 History oral suspension (Milk of Magnesia) .COMPLEX PRN Constipation mupirocin 2 % topical ointment 1 applic topical TID PRN Wound Care 03/16/23 03/16/23 History olopatadine 0.2 % eye drops 1 drp OPB .@0803/16/23 03/16/23 History tamsulosin 0.4 mg capsule 0.4 mg PO .@199903/16/23 03/16/23 History white petrolatum 41 % topical 1 applic topical . 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 Lives in penitentiary resides at [employer]--all pt information obtained from caregiver at [facility] Hyperlipidemia BPH (benign prostatic hyperplasia) Seizures Last seizure- "many years ago"--reason for Trileptal Surgical History S/P appy No pertinent past surgical history H/O eye surgery As child- to place eye prosthetics Family History Other Family history non-contributory Family history unknown Social History Smoking Status: Never smoker Second Hand Exposure: No; Do You Dip or Chew Tobacco: No; Hx Alcohol Use: No Hx Substance Use: No Preferred Language: Estonian Communication Ability: Effective Communication Ability Comment: Blind Cigar Patcher Required: No Beliefs That Will Affect Care: None marital status: Single Current Living Situation: Boarding Home and Personal Care Facility Current Living Situation Comment: [facility] current occupational status: unemployed and disabled Feels Safe at Home: Yes Safety Concerns: Feels Safe At This Time Assistive Devices: Cane Review of Systems Constitutional: as per Subjective / HPI Respiratory: as per Subjective / HPI Cardiovascular: as per Subjective / HPI Gastrointestinal: as per Subjective / HPI Genitourinary: + problem reported (BPH, UTI) Neurologic: as per Subjective / HPI seizures Psychiatric: as per Subjective / HPI Endocrine: as per Subjective / HPI Hematologic / Lymphatic: as per Subjective / HPI Physical Exam Constitutional: WD/WN, vitals as above Neck: trachea midline, no thyromegaly Respiratory: normal respiratory effort, lungs clear to auscultation Cardiovascular: RRR, no murmur, no edema Gastrointestinal (Abdomen): soft, mild tenderness at RUQ, no rebound pain, no distend, Neurologic: patellar DTR's 2+ bilat, sensation intact Results & Data Vital Signs (Past 12 Hours) Vital Signs Temp Pulse Pulse Resp BP BP Pulse Ox 03/18/23 07:55 113 H 03/18/23 07:28 37.2 C 122 H 18 137/82 92 03/18/23 06:52 123 H 03/18/23 06:23 37.5 C 124 H 22 129/85 92 03/18/23 06:23 03/18/23 05:59 102 H 16 124/72 93 03/18/23 05:49 158 H 124/81 03/18/23 03:46 37.3 C 141 H 18 132/82 92 03/18/23 01:48 93 H O2 Del Method 03/18/23 07:55 03/18/23 07:28 Room Air 03/18/23 06:52 03/18/23 06:23 Room Air 03/18/23 06:23 Room Air 03/18/23 05:59 Room Air 03/18/23 05:49 03/18/23 03:46 Room Air 03/18/23 01:48 Laboratory Results Lab Results 03/16/23 03/16/23 03/16/23 Range/Units 09:25 10:00 10:05 WBC 17.70 H (4.8-10.8) K/ul RBC 6.19 H (4.70-6.10) M/uL Hgb 19.1 H (14.0-18.0) g/dl POC Hgb 19.4 H (14.0-18.0) g/dl Hct 53.6 H (42.0-52.0) % POC Hct 57 H (42-52) % MCV 86.6 (80.0-100.0) fL MCH 30.9 (25.0-34.0) pg MCHC 35.6 (32.0-36.0) g/dL RDW Std Deviation 44.3 (36.4-46.3) fL RDW Coeff of Kobe 14.1 (11.5-14.5) % Plt Count 263 (130-400) K/uL MPV 11.9 (9.4-12.4) fL Immature Gran % (Auto) 0.5 % Neut % (Auto) 90.8 % Lymph % (Auto) 3.1 % [place] % (Auto) 5.3 % Eos % (Auto) 0.0 % Baso % (Auto) 0.3 % Neut # (Auto) 16.06 H (1.40-6.50) K/uL Lymph # (Auto) 0.55 L (1.20-3.40) K/uL [place] # (Auto) 0.94 H (0.11-0.59) K/uL Eos # (Auto) 0.00 (0.00-0.50) K/uL Baso # (Auto) 0.06 (0.00-0.20) K/uL Immature Gran # (Auto) 0.09 (0.01-0.20) K/uL Polychromasia 1+ PT 12.2 H (9.0-12.0) Seconds INR 1.1 (0.9-1.1) APTT 26 (21-31) Seconds PTT Ratio 0.9 VBG pH (7.36-7.41) VBG pCO2 (38-50) mmHg VBG pO2 mmHg VBG HCO3 mmol/L VBG O2 Saturation % VBG Base Excess mEq/L POC Sodium 135 (135-144) mmol/L Sodium 133 L (136-145) mmol/L POC Potassium 3.4 (3.3-5.0) mmol/L Potassium 3.5 (3.5-5.1) mmol/L POC Chloride 98 L (101-112) mmol/L Chloride 97 L (98-107) mmol/L Carbon Dioxide 22 (21-32) mmol/L POC Total CO2 23 L (24-31) mmol/L Anion Gap 14 H (3-11) POC Anion Gap 18.0 (16-25) mmol/L POC BUN 36 H (7-18) mg/dl BUN 33 H (6-23) mg/dl Creatinine 1.60 H (0.6-1.4) mg/dl POC Creatinine 1.4 H (0.6-1.3) mg/dl Est Cr Clr Drug Dosing 40.4 ml/min Est GFR ( Amer) 48.8 ml/min Est GFR (Non-Af Amer) 42.1 ml/min BUN/Creatinine Ratio 20.6 H (10-20) Glucose 193 H (70-99(Fasting)) mg/dl POC Glucose (other) 177 H (70-99) mg/dl Lactate (0.4-2.0) mmol/L Calcium 8.1 L (8.6-10.3) mg/dl POC Ioniz Calcium Ayanna 0.93 L (1.12-1.32) mmol/l Magnesium (1.7-2.4) mg/dl Total Bilirubin (0.2-1.0) mg/dl Direct Bilirubin (0-0.2) mg/dl AST (13-39) U/L ALT (7-52) U/L Alkaline Phosphatase (34-104) U/L Troponin I High Sens 22.3 H (0-20) pg/ml Total Protein (6.0-8.3) gm/dl Albumin (3.4-5.0) gm/dl Globulin (2.5-4.0) gm/dl Albumin/Globulin Ratio (0.9-2) Lipase 50 (11-82) U/L TSH (0.300-4.500) uIu/ml Urine Color Urine Appearance (Clear) Urine pH (4.5-7.5) Ur Specific Upatoi (1.000-1.030) Urine Protein (Negative) Urine Glucose (UA) (Negative) Urine Ketones (Negative) Urine Blood (Negative) Urine Nitrite (Negative) Urine Bilirubin (Negative) Urine Urobilinogen (Negative) Ur Leukocyte Esterase (Negative) Urine WBC (Auto) (0-5) /hpf Urine RBC (Auto) (0-4) /hpf U Hyaline Cast (Auto) (0-5) /lpf U Epithel Cells (Auto) (0-5) /lpf Urine Bacteria (Auto) (Negative) Adenovirus (PCR) Not Detected (NotDetected) B. pertussis DNA (PCR) Not Detected (NotDetected) B.parapertussis DNA PCR Not Detected (NotDetected) C. pneumoniae DNA (PCR) Not Detected (NotDetected) Coronavirus OC43 (PCR) Not Detected (NotDetected) Coronavirus HKU1 (PCR) Not Detected (NotDetected) Coronavirus 229E (PCR) Not Detected (NotDetected) SARS-CoV-2 (PCR) Not Detected (NotDetected) Coronavirus NL63 (PCR) Not Detected (NotDetected) Human Metapneumovir PCR Not Detected (NotDetected) Influenza Type A (PCR) Not Detected (NotDetected) Influenza Type B (PCR) Not Detected (NotDetected) M. pneumoniae (PCR) Not Detected (NotDetected) Parainfluenza 1 (PCR) Not Detected (NotDetected) Parainfluenza 2 (PCR) Not Detected (NotDetected) Parainfluenza 3 (PCR) Not Detected (NotDetected) Parainfluenza 4 (PCR) Not Detected (NotDetected) RSV (PCR) Not Detected (NotDetected) Entero/Rhino (PCR) Not Detected (NotDetected) 03/16/23 03/16/23 03/16/23 Range/Units 10:18 10:55 11:50 WBC (4.8-10.8) K/ul RBC (4.70-6.10) M/uL Hgb (14.0-18.0) g/dl POC Hgb (14.0-18.0) g/dl Hct (42.0-52.0) % POC Hct (42-52) % MCV (80.0-100.0) fL MCH (25.0-34.0) pg MCHC (32.0-36.0) g/dL RDW Std Deviation (36.4-46.3) fL RDW Coeff of Kobe (11.5-14.5) % Plt Count (130-400) K/uL MPV (9.4-12.4) fL Immature Gran % (Auto) % Neut % (Auto) % Lymph % (Auto) % [place] % (Auto) % Eos % (Auto) % Baso % (Auto) % Neut # (Auto) (1.40-6.50) K/uL Lymph # (Auto) (1.20-3.40) K/uL [place] # (Auto) (0.11-0.59) K/uL Eos # (Auto) (0.00-0.50) K/uL Baso # (Auto) (0.00-0.20) K/uL Immature Gran # (Auto) (0.01-0.20) K/uL Polychromasia PT (9.0-12.0) Seconds INR (0.9-1.1) APTT (21-31) Seconds PTT Ratio VBG pH 7.36 (7.36-7.41) VBG pCO2 45 (38-50) mmHg VBG pO2 23 mmHg VBG HCO3 25 mmol/L VBG O2 Saturation < 60.0 % VBG Base Excess -0.4 mEq/L POC Sodium (135-144) mmol/L Sodium (136-145) mmol/L POC Potassium (3.3-5.0) mmol/L Potassium (3.5-5.1) mmol/L POC Chloride (101-112) mmol/L Chloride (98-107) mmol/L Carbon Dioxide (21-32) mmol/L POC Total CO2 (24-31) mmol/L Anion Gap (3-11) POC Anion Gap (16-25) mmol/L POC BUN (7-18) mg/dl BUN (6-23) mg/dl Creatinine (0.6-1.4) mg/dl POC Creatinine (0.6-1.3) mg/dl Est Cr Clr Drug Dosing ml/min Est GFR ( Amer) ml/min Est GFR (Non-Af Amer) ml/min BUN/Creatinine Ratio (10-20) Glucose (70-99(Fasting)) mg/dl POC Glucose (other) (70-99) mg/dl Lactate 2.7 H* (0.4-2.0) mmol/L Calcium (8.6-10.3) mg/dl POC Ioniz Calcium Ayanna (1.12-1.32) mmol/l Magnesium (1.7-2.4) mg/dl Total Bilirubin (0.2-1.0) mg/dl Direct Bilirubin (0-0.2) mg/dl AST (13-39) U/L ALT (7-52) U/L Alkaline Phosphatase (34-104) U/L Troponin I High Sens (0-20) pg/ml Total Protein (6.0-8.3) gm/dl Albumin (3.4-5.0) gm/dl Globulin (2.5-4.0) gm/dl Albumin/Globulin Ratio (0.9-2) Lipase (11-82) U/L TSH (0.300-4.500) uIu/ml Urine Color Dark Yellow Urine Appearance Clear (Clear) Urine pH 6.0 (4.5-7.5) Ur Specific Upatoi > 1.045 H (1.000-1.030) Urine Protein 1+ H (Negative) Urine Glucose (UA) Negative (Negative) Urine Ketones Negative (Negative) Urine Blood Negative (Negative) Urine Nitrite Positive A (Negative) Urine Bilirubin 2+ H (Negative) Urine Urobilinogen Negative (Negative) Ur Leukocyte Esterase Trace H (Negative) Urine WBC (Auto) 1-5 (0-5) /hpf Urine RBC (Auto) 5-10 H (0-4) /hpf U Hyaline Cast (Auto) 5-10 H (0-5) /lpf U Epithel Cells (Auto) >30 H (0-5) /lpf Urine Bacteria (Auto) Negative (Negative) Adenovirus (PCR) (NotDetected) B. pertussis DNA (PCR) (NotDetected) B.parapertussis DNA PCR (NotDetected) C. pneumoniae DNA (PCR) (NotDetected) Coronavirus OC43 (PCR) (NotDetected) Coronavirus HKU1 (PCR) (NotDetected) Coronavirus 229E (PCR) (NotDetected) SARS-CoV-2 (PCR) (NotDetected) Coronavirus NL63 (PCR) (NotDetected) Human Metapneumovir PCR (NotDetected) Influenza Type A (PCR) (NotDetected) Influenza Type B (PCR) (NotDetected) M. pneumoniae (PCR) (NotDetected) Parainfluenza 1 (PCR) (NotDetected) Parainfluenza 2 (PCR) (NotDetected) Parainfluenza 3 (PCR) (NotDetected) Parainfluenza 4 (PCR) (NotDetected) RSV (PCR) (NotDetected) Entero/Rhino (PCR) (NotDetected) 03/16/23 03/16/23 03/16/23 Range/Units 11:56 15:40 18:15 WBC (4.8-10.8) K/ul RBC (4.70-6.10) M/uL Hgb (14.0-18.0) g/dl POC Hgb (14.0-18.0) g/dl Hct (42.0-52.0) % POC Hct (42-52) % MCV (80.0-100.0) fL MCH (25.0-34.0) pg MCHC (32.0-36.0) g/dL RDW Std Deviation (36.4-46.3) fL RDW Coeff of Kobe (11.5-14.5) % Plt Count (130-400) K/uL MPV (9.4-12.4) fL Immature Gran % (Auto) % Neut % (Auto) % Lymph % (Auto) % [place] % (Auto) % Eos % (Auto) % Baso % (Auto) % Neut # (Auto) (1.40-6.50) K/uL Lymph # (Auto) (1.20-3.40) K/uL [place] # (Auto) (0.11-0.59) K/uL Eos # (Auto) (0.00-0.50) K/uL Baso # (Auto) (0.00-0.20) K/uL Immature Gran # (Auto) (0.01-0.20) K/uL Polychromasia PT (9.0-12.0) Seconds INR (0.9-1.1) APTT (21-31) Seconds PTT Ratio VBG pH (7.36-7.41) VBG pCO2 (38-50) mmHg VBG pO2 mmHg VBG HCO3 mmol/L VBG O2 Saturation % VBG Base Excess mEq/L POC Sodium (135-144) mmol/L Sodium (136-145) mmol/L POC Potassium (3.3-5.0) mmol/L Potassium (3.5-5.1) mmol/L POC Chloride (101-112) mmol/L Chloride (98-107) mmol/L Carbon Dioxide (21-32) mmol/L POC Total CO2 (24-31) mmol/L Anion Gap (3-11) POC Anion Gap (16-25) mmol/L POC BUN (7-18) mg/dl BUN (6-23) mg/dl Creatinine (0.6-1.4) mg/dl POC Creatinine (0.6-1.3) mg/dl Est Cr Clr Drug Dosing ml/min Est GFR ( Amer) ml/min Est GFR (Non-Af Amer) ml/min BUN/Creatinine Ratio (10-20) Glucose (70-99(Fasting)) mg/dl POC Glucose (other) (70-99) mg/dl Lactate 1.4 (0.4-2.0) mmol/L Calcium (8.6-10.3) mg/dl POC Ioniz Calcium Ayanna (1.12-1.32) mmol/l Magnesium (1.7-2.4) mg/dl Total Bilirubin (0.2-1.0) mg/dl Direct Bilirubin (0-0.2) mg/dl AST (13-39) U/L ALT (7-52) U/L Alkaline Phosphatase (34-104) U/L Troponin I High Sens 30.2 H (0-20) pg/ml Total Protein (6.0-8.3) gm/dl Albumin (3.4-5.0) gm/dl Globulin (2.5-4.0) gm/dl Albumin/Globulin Ratio (0.9-2) Lipase (11-82) U/L TSH 1.942 (0.300-4.500) uIu/ml Urine Color Dark Yellow Urine Appearance Clear (Clear) Urine pH 6.5 (4.5-7.5) Ur Specific Upatoi > 1.045 H (1.000-1.030) Urine Protein 1+ H (Negative) Urine Glucose (UA) Negative (Negative) Urine Ketones Negative (Negative) Urine Blood Negative (Negative) Urine Nitrite Positive A (Negative) Urine Bilirubin 2+ H (Negative) Urine Urobilinogen Negative (Negative) Ur Leukocyte Esterase Trace H (Negative) Urine WBC (Auto) 10-30 H (0-5) /hpf Urine RBC (Auto) 0-4 (0-4) /hpf U Hyaline Cast (Auto) 0 (0-5) /lpf U Epithel Cells (Auto) 20-30 H (0-5) /lpf Urine Bacteria (Auto) Negative (Negative) Adenovirus (PCR) (NotDetected) B. pertussis DNA (PCR) (NotDetected) B.parapertussis DNA PCR (NotDetected) C. pneumoniae DNA (PCR) (NotDetected) Coronavirus OC43 (PCR) (NotDetected) Coronavirus HKU1 (PCR) (NotDetected) Coronavirus 229E (PCR) (NotDetected) SARS-CoV-2 (PCR) (NotDetected) Coronavirus NL63 (PCR) (NotDetected) Human Metapneumovir PCR (NotDetected) Influenza Type A (PCR) (NotDetected) Influenza Type B (PCR) (NotDetected) M. pneumoniae (PCR) (NotDetected) Parainfluenza 1 (PCR) (NotDetected) Parainfluenza 2 (PCR) (NotDetected) Parainfluenza 3 (PCR) (NotDetected) Parainfluenza 4 (PCR) (NotDetected) RSV (PCR) (NotDetected) Entero/Rhino (PCR) (NotDetected) 03/16/23 03/17/23 03/18/23 Range/Units 20:35 02:03 05:25 WBC 14.31 H 10.49 (4.8-10.8) K/ul RBC 5.53 4.80 (4.70-6.10) M/uL Hgb 17.1 14.6 (14.0-18.0) g/dl POC Hgb (14.0-18.0) g/dl Hct 46.9 40.5 L (42.0-52.0) % POC Hct (42-52) % MCV 84.8 84.4 (80.0-100.0) fL MCH 30.9 30.4 (25.0-34.0) pg MCHC 36.5 H 36.0 (32.0-36.0) g/dL RDW Std Deviation 43.3 44.0 (36.4-46.3) fL RDW Coeff of Kobe 14.0 14.5 (11.5-14.5) % Plt Count 180 156 (130-400) K/uL MPV 12.2 11.7 (9.4-12.4) fL Immature Gran % (Auto) 0.2 % Neut % (Auto) 88.3 % Lymph % (Auto) 3.5 % [place] % (Auto) 7.8 % Eos % (Auto) 0.0 % Baso % (Auto) 0.2 % Neut # (Auto) 9.26 H (1.40-6.50) K/uL Lymph # (Auto) 0.37 L (1.20-3.40) K/uL [place] # (Auto) 0.82 H (0.11-0.59) K/uL Eos # (Auto) 0.00 (0.00-0.50) K/uL Baso # (Auto) 0.02 (0.00-0.20) K/uL Immature Gran # (Auto) 0.02 (0.01-0.20) K/uL Polychromasia PT (9.0-12.0) Seconds INR (0.9-1.1) APTT (21-31) Seconds PTT Ratio VBG pH (7.36-7.41) VBG pCO2 (38-50) mmHg VBG pO2 mmHg VBG HCO3 mmol/L VBG O2 Saturation % VBG Base Excess mEq/L POC Sodium (135-144) mmol/L Sodium 138 140 (136-145) mmol/L POC Potassium (3.3-5.0) mmol/L Potassium 3.7 3.3 L (3.5-5.1) mmol/L POC Chloride (101-112) mmol/L Chloride 108 H 112 H (98-107) mmol/L Carbon Dioxide 19 L 21 (21-32) mmol/L POC Total CO2 (24-31) mmol/L Anion Gap 11 7 (3-11) POC Anion Gap (16-25) mmol/L POC BUN (7-18) mg/dl BUN 36 H 29 H (6-23) mg/dl Creatinine 1.20 D 1.04 (0.6-1.4) mg/dl POC Creatinine (0.6-1.3) mg/dl Est Cr Clr Drug Dosing 53.0 61.8 ml/min Est GFR ( Amer) 69.1 82.2 ml/min Est GFR (Non-Af Amer) 59.6 70.9 ml/min BUN/Creatinine Ratio 30.0 H 27.9 H (10-20) Glucose 144 H 134 H (70-99(Fasting)) mg/dl POC Glucose (other) (70-99) mg/dl Lactate 1.0 (0.4-2.0) mmol/L Calcium 7.3 L 7.3 L (8.6-10.3) mg/dl POC Ioniz Calcium Ayanna (1.12-1.32) mmol/l Magnesium 2.0 (1.7-2.4) mg/dl Total Bilirubin 9.1 H 7.1 H (0.2-1.0) mg/dl Direct Bilirubin 5.3 H (0-0.2) mg/dl AST 72 H 70 H (13-39) U/L ALT 141 H 118 H (7-52) U/L Alkaline Phosphatase 118 H 175 H (34-104) U/L Troponin I High Sens 22.7 H 16.9 D 18.8 (0-20) pg/ml Total Protein 5.5 L 5.3 L (6.0-8.3) gm/dl Albumin 2.8 L 2.7 L (3.4-5.0) gm/dl Globulin 2.6 (2.5-4.0) gm/dl Albumin/Globulin Ratio 1.0 (0.9-2) Lipase (11-82) U/L TSH (0.300-4.500) uIu/ml Urine Color Urine Appearance (Clear) Urine pH (4.5-7.5) Ur Specific [place]patoi (1.000-1.030) Urine Protein (Negative) Urine Glucose (UA) (Negative) Urine Ketones (Negative) Urine Blood (Negative) Urine Nitrite (Negative) Urine Bilirubin (Negative) Urine Urobilinogen (Negative) Ur Leukocyte Esterase (Negative) Urine WBC (Auto) (0-5) /hpf Urine RBC (Auto) (0-4) /hpf U Hyaline Cast (Auto) (0-5) /lpf U Epithel Cells (Auto) (0-5) /lpf Urine Bacteria (Auto) (Negative) Adenovirus (PCR) (NotDetected) B. pertussis DNA (PCR) (NotDetected) B.parapertussis DNA PCR (NotDetected) C. pneumoniae DNA (PCR) (NotDetected) Coronavirus OC43 (PCR) (NotDetected) Coronavirus HKU1 (PCR) (NotDetected) Coronavirus 229E (PCR) (NotDetected) SARS-CoV-2 (PCR) (NotDetected) Coronavirus NL63 (PCR) (NotDetected) Human Metapneumovir PCR (NotDetected) Influenza Type A (PCR) (NotDetected) Influenza Type B (PCR) (NotDetected) M. pneumoniae (PCR) (NotDetected) Parainfluenza 1 (PCR) (NotDetected) Parainfluenza 2 (PCR) (NotDetected) Parainfluenza 3 (PCR) (NotDetected) Parainfluenza 4 (PCR) (NotDetected) RSV (PCR) (NotDetected) Entero/Rhino (PCR) (NotDetected) Diagnostic Findings ABDOMINAL ULTRASOUND, RIGHT UPPER QUADRANT HISTORY: Acutely elevated LFTs elevated bili, elev. LFts. COMPARISON: MRCP and CT abdomen and pelvis studies 03/17/2023 FINDINGS: Pancreas: By bowel gas. Liver: No hepatic mass or marginal nodularity of the parenchyma. Intrahepatic biliary ductal dilation. Gallbladder: Stone filled gallbladder demonstrates wall thickening measuring up to 3-4 mm. Pericholecystic edema also noted. Negative sonographic Rosario's sign. CBD: 0.8 cm. Right kidney: No hydronephrosis. Right pleural effusion redemonstrated. IMPRESSION: 1. Cholelithiasis with findings suggestive of acute cholecystitis redemonstrated. 2. Intrahepatic and extrahepatic biliary ductal dilation is again seen. 3. Right pleural effusion redemonstrated. ACT 112: Negative or not required by law. Electronically signed by: Delta Reynoso M.D. 03/18/2023 9:17 AM Exam(s): MRI MRCP EXAM: MR Abdomen Without Intravenous Contrast, MRCP Protocol CLINICAL HISTORY: Reason for exam: elevated lft. TECHNIQUE: Multiplanar magnetic resonance images of the abdomen without intravenous contrast using MRCP protocol. COMPARISON: No relevant prior studies available. FINDINGS: Limitations: Exam significantly limited secondary to patient respiratory motion. Lower thorax: Large bilateral pleural effusions right greater than left. Bile ducts: Unremarkable. No stones. No ductal dilation. Gallbladder: Cholelithiasis mild intrahepatic biliary ductal dilatation. Cholelithiasis with pericholecystic fluid. Liver: Unremarkable. Pancreas: Unremarkable. No ductal dilation. Spleen: Unremarkable. No splenomegaly. Adrenals: Unremarkable. No mass. Kidneys and ureters: Unremarkable. No hydronephrosis. Stomach and bowel: Unremarkable. No obstruction. IMPRESSION: 1. Findings consistent with acute cholecystitis 2. Large bilateral pleural effusions right greater than left 3. Limited exam as described above Electronically signed by: Demarcus Hinkle MD 03/18/23 01:44 AM Exam(s): CT ABDOMEN + PELVIS Without Contrast EXAM: CT Abdomen and Pelvis Without Intravenous Contrast CLINICAL HISTORY: Reason for exam: Possible sepsis, source? TECHNIQUE: Axial computed tomography images of the abdomen and pelvis without intravenous contrast. CTDI is 25.5 mGy and DLP is 1320.59 mGy-cm. Automated exposure control was utilized for the study. A dose lowering technique was utilized adhering to the principles of ALARA. COMPARISON: No relevant prior studies available. FINDINGS: Small-moderate bilateral pleural effusions. Associated basilar atelectasis, left greater than right. Peripancreatic and other retroperitoneal edema raises the possibility of acute pancreatitis. Recommend correlation with enzymes. Biliary dilation, predominantly intrahepatic. Consider ultrasound and/or MRCP. Small volume ascites and generalized edema/anasarca. This could explain mesorectal edema, but correlate for impaction and stercoral proctitis. Gaseous distention of the stomach. No perforation. Diverticula to the leftward urinary bladder. Dense bladder contents could reflect blood products. Question hematuria. No hydronephrosis. Aortoiliac atherosclerosis. No AAA. Operative changes of the abdominal wall. Fatty inguinal hernias. Thoracolumbar spondylosis and hyperostosis. No acute fracture. IMPRESSION: Peripancreatic and other retroperitoneal edema raises the possibility of acute pancreatitis. Recommend correlation with enzymes. Biliary dilation, predominantly intrahepatic. Consider ultrasound and/or MRCP. Small volume ascites. Anasarca could explain mesorectal edema, but correlate for stercoral proctitis. Gaseous distention of the stomach. No perforation. Urinary bladder diverticula with dense contents. Question hematuria Electronically signed by: Chuck Pina M.D. 03/17/23 20:01 PM
[2023-03-18] MEDS ORDERED: FUROSEMIDE INJ 20 MG/2 ML VIAL IV SCH (09:50)
[2023-03-18] MEDS ORDERED: FUROSEMIDE INJ 20 MG/2 ML VIAL IV ONE (09:52)
[2023-03-18] MEDS ORDERED: Heparin IV Adult Wt-Based Standard w/ INITIAL Bolus Protocol IV STA (09:53)
[2023-03-18] MEDS ORDERED: STAT IV Infusion **Titration per Protocol STA (09:54)
[2023-03-18] MEDS ORDERED: dilTIAZem HCl 5 MG/ML 5 ML VIAL IV STA (09:54)
--- NOTE | 2023-03-18 09:59 | Gastrointestinal Consultation ---
Date of Consultation March 18, 2023 Assessment & Plan (1) Acute cholecystitis due to biliary calculus: Pt is a 73 yo male w elevated LFTs, noted to have cholecytitis on abd imaging studies and intra/extrahepatic biliary ductal dilation. MRCP quality not optimal and did not identify biliary stones though he could have sludge/stone present. We unfortunately do not have biliary coverage this week. Discussed this with Dr. Sneed (Surgery) and recommended him to proceed with cholecystectomy w intra-op cholangiogram vs transferring pt to tertiary care center for EUS/ERCP + cholecystectomy. Dr. Sneed would like pt transferred. I discussed this with Dr. Mcdowell (hospitalist). Dr. Mcdowell had requested for pt to be transferred to [facility] last night however no bed is available and pt also developed Afib w RVR last night. - Keep NPO - IV antibiotics coverage - Trend LFTs - Transfer to tertiary care center for EUS/ERCP + cholecystectomy once bed available - Surgery following Supervising Physician Co-Signing Physician Notes I personally saw and evaluated the patient on 03/18/2023 with SYDNEY Salter and agree with her findings and plan of care. Abdomen soft and non-tender. Patient admitted with abnormal LFTs (bilirubin 9, ALP 175, AST 70, and ALT 118) and findings of acute cholecystitis on imaging and intrahepatic and extrahepatic biliary dilation. We have no biliary coverage here this week. We had discussed with surgery about performing cholecystectomy with IOP but they are not planning cholecystectomy here and wanted the patient to be transferred for an ERCP first. No discrete CBD stone seen on MRCP but I suspect he has one. As there is no biliary coverage here recommend he is transferred for ERCP to [place] [facility]. Trend daily LFTs. He did have a leukocytosis to 14k so would recommend coverage with IV zosyn to cover for any cholangitis. Doris Levin, DO Gastroenterology and Hepatology History of Present Illness Reason for Consultation: Eval for possible ERCP Requesting Physician: Dr. Regino Sneed Attending Physician: Dr. Doris Levin History of Present Illness Patient is a 73 years old male who is a skilled resident, with history of intellectual disability, legally blind, who presented with weakness, tachycardia and increased work of breathing in the last 3 to 4 days. He is also displaced lower appetite per his caregiver, for the past month has had issues with bowel and urinary incontinence's. No fevers or chills, denies any chest pain, abdominal pain, nausea or vomiting. No bowel habit changes. On evaluation here, he has noted to have leukocytosis but afebrile, mild hypokalemia with potassium 3.3, kidney function normal, elevated LFTs are noted with T. bili of 7.1, AST 70, ALT 118, alkaline phosphatase 175. Liver imaging studies with ultrasound, CT abdomen pelvis without contrast, MRCP showed signs of cholelithiasis but acute cholecystitis. No signs of intra and extrahepatic biliary ductal dilatation, MRCP images suboptimal due to artifact, without any signs of biliary stones noted. Surgery team requested for GI consultation for possible ERCP Liver US: 1. Cholelithiasis with findings suggestive of acute cholecystitis redemonstrated. 2. Intrahepatic and extrahepatic biliary ductal dilation is again seen. 3. Right pleural effusion redemonstrated. MRCP: 1. Findings consistent with acute cholecystitis 2. Large bilateral pleural effusions right greater than left Abd/Pelvis CT wo contrast: Peripancreatic and other retroperitoneal edema raises the possibility of acute pancreatitis. Recommend correlation with enzymes. Biliary dilation, predominantly intrahepatic. Consider ultrasound and/or MRCP. Small volume ascites. Anasarca could explain mesorectal edema, but correlate for stercoral proctitis. Gaseous distention of the stomach. No perforation. Urinary bladder diverticula with dense contents. Question hematuria Allergies Allergy/AdvReac Type Severity Reaction Status Date / Time bacitracin Allergy Unknown Unknown Verified 07/30/22 10:45 [From Neosporin ([id number])] neomycin Allergy Unknown Unknown Verified 07/30/22 10:45 [From Neosporin ([id number])] polymyxin B Allergy Unknown Unknown Verified 07/30/22 10:45 [From Neosporin ([id number])] Home Medications Medication Instructions Recorded Confirmed Type levothyroxine 25 mcg tablet 25 mcg PO .@0700 03/14/20 03/16/23 History (Synthroid) acetaminophen 325 mg tablet 650 mg PO Q4H PRN 09/19/20 03/16/23 History (Tylenol) FEVER/HEADACHE/MINOR ACHES/PAIN aspirin 81 mg tablet,delayed 81 mg PO . @79909/19/20 03/16/23 History release atorvastatin 10 mg tablet 10 mg PO .@79909/19/20 03/16/23 History buspirone 10 mg tablet 10 mg PO .@199909/19/20 03/16/23 History fluticasone propionate 50 2 spray intranasal .@79909/19/20 03/16/23 History mcg/actuation nasal spray,suspension multivitamin (Daily-Chidi tablet) 1 tab PO .@79909/19/20 03/16/23 History Baby Shampoo See Rx Instructions .Route .COMPLEX 03/16/23 03/16/23 History Nitro 0.2% Ointment/Petroleum 1 applic [place] .@199903/16/23 03/16/23 History Thera Breath Oral Rinse 2 cap PO .@199903/16/23 03/16/23 History albuterol sulfate 90 mcg/actuation 2 puff inhalation Q6H PRN 03/16/23 03/16/23 History aerosol inhaler COUGH/WHEEZING buspirone 15 mg tablet 15 mg PO .@159903/16/23 03/16/23 History clotrimazole 1 % topical cream 1 applic topical BID@03/16/23 03/16/23 History docusate sodium 100 mg capsule 100 mg PO . @199903/16/23 03/16/23 History dutasteride 0.5 mg capsule 0.5 mg PO .@79903/16/23 03/16/23 History (Avodart) fluoride (sodium) 1.1 % dental 1 applic dental .@199903/16/23 03/16/23 History paste loperamide 2 mg capsule (Imodium See Rx Instructions .Route 03/16/23 03/16/23 History A-D) .COMPLEX PRN Diarrhea loratadine 10 mg tablet 10 mg PO .@79903/16/23 03/16/23 History magnesium hydroxide 400 mg/5 mL See Rx Instructions .Route 03/16/23 03/16/23 History oral suspension (Milk of Magnesia) .COMPLEX PRN Constipation mupirocin 2 % topical ointment 1 applic topical TID PRN Wound Care 03/16/23 03/16/23 History olopatadine 0.2 % eye drops 1 drp OPB .@79903/16/23 03/16/23 History tamsulosin 0.4 mg capsule 0.4 mg PO .@199903/16/23 03/16/23 History white petrolatum 41 % topical 1 applic topical . @0803/16/23 03/16/23 History ointment (Aquaphor Healing) Patient History Medical History Illiterate Blind in both eyes Nocturnal enuresis Chronic allergic rhinitis Prediabetes Urinary incontinence Intellectual disability Hyponatremia Hypothyroidism 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 Lives in halfway resides at [facility]--all pt information obtained from caregiver at [facility] Hyperlipidemia BPH (benign prostatic hyperplasia) Seizures Last seizure- "many years ago"--reason for Trileptal Surgical History S/P appy No pertinent past surgical history H/O eye surgery As child- to place eye prosthetics Family History Other Family history non-contributory Family history unknown Social History Smoking Status: Never smoker Second Hand Exposure: No; Do You Dip or Chew Tobacco: No; Hx Alcohol Use: No Hx Substance Use: No Preferred Language: Maori Communication Ability: Effective Communication Ability Comment: [place] [employer] Director Required: No Beliefs That Will Affect Care: None marital status: Single Current Living Situation: Boarding Home and Personal Care Facility Current Living Situation Comment: Skills current occupational status: unemployed and disabled Feels Safe at Home: Yes Safety Concerns: Feels Safe At This Time Assistive Devices: Cane Review of Systems Review of Systems: All systems reviewed & are unremarkable except as noted in HPI & below Physical Exam Constitutional: WD/WN, vitals as above well groomed, cooperative and comfortable Eyes: PERRL, conjunctivae normal, anicteric sclerae ENMT: external ear and nose normal, oropharynx normal Respiratory: normal respiratory effort, lungs clear to auscultation Cardiovascular: RRR, no murmur, no edema Gastrointestinal (Abdomen): normal bowel sounds, soft, nontender, no hepatosplenomegaly Skin: no rashes, warm and dry + jaundice Psychiatric: A+Ox3, euthymic affect Lymphatic: no lymphedema Results & Data Vital Signs (Past 12 Hours) Vital Signs Temp Pulse Pulse Resp BP BP Pulse Ox 03/18/23 07:55 113 H 03/18/23 07:28 37.2 C 122 H 18 137/82 92 03/18/23 06:52 123 H 03/18/23 06:23 37.5 C 124 H 22 129/85 92 03/18/23 06:23 03/18/23 05:59 102 H 16 124/72 93 03/18/23 05:49 158 H 124/81 03/18/23 03:46 37.3 C 141 H 18 132/82 92 03/18/23 01:48 93 H O2 Del Method 03/18/23 07:55 03/18/23 07:28 Room Air 03/18/23 06:52 03/18/23 06:23 Room Air 03/18/23 06:23 Room Air 03/18/23 05:59 Room Air 03/18/23 05:49 03/18/23 03:46 Room Air 03/18/23 01:48
--- NOTE | 2023-03-18 10:11 | Cardiology Consultation ---
Date of Consultation March 18, 2023 Assessment & Plan (1) Atrial fibrillation with RVR: (2) Acute cholecystitis due to biliary calculus: (3) Volume overload: Plan Atrial fibrillation with rapid ventricular rate Volume overload Hypokalemia Acute cholecystitis History of urethral stricture with resultant urinary retention, Souza catheter removed in December, as per urology notes- per I/O report, has been voiding, but has been 3 Liters positive for the two proceeding days -Supplement potassium orally -Add low dose spironolactone -Stop IV fluids (currently on LR at 80 ml/hr) -Furosemide 20 mg IV x 2 -IV cardizem, start 5 mg /hr. General surgery and GI consults in process. Case discussed with Dr Mcdowell. History of Present Illness Attending Physician: Luis Carlos Mcdowell MD History of Present Illness Alyse Ng is a 73-year-old male seen in cardiology consultation per the request of Dr. Beach and Dr Mcdowell for the evaluation of atrial fibrillation with rapid ventricular response. The patient has a history of intellectual disability and lives in a supervised setting at baseline. He was admitted via the emergency department on 03/16/2023 with generalized concern of a change in mental status and generalized illness. There was initial concern for urinary tract infection and the patient had received resuscitation with IV fluids. It had been noticed that he became progressively jaundiced and a liver function panel was drawn on 12/16/2022 which was abnormal including a total bilirubin of 9.1, direct bilirubin 5.3, AST 72, ALT 141, and alkaline phosphatase of 118. A CT of the abdomen pelvis performed on 03/17/2023 revealed small to moderate bilateral pleural effusions. Marked gastric distention of the stomach noted. An MRCP and abdominal ultrasound have since been performed with findings suggestive of acute cholecystitis. At time of presentation on 03/16/2023 his initial EKG revealed sinus tachycardia with frequent supraventricular and ventricular ectopy. In the meantime an EKG had revealed normal sinus rhythm however at 330 this morning he was observed on telemetry to have converted to atrial fibrillation with rapid ventricular response. He received doses of IV metoprolol 5 mg followed by 2.5 mg and was transferred to the PCU. At the time my assessment, the patient is lying supine. He denies any chest discomfort, subjective palpitations or shortness of breath. Denies abdominal discomfort. His skin is jaundiced by appearance. Atrial fibrillation with rapid ventricular response in the 130s once again noted on telemetry as was documented on EKG. Allergies Allergy/AdvReac Type Severity Reaction Status Date / Time bacitracin Allergy Unknown Unknown Verified 07/30/22 10:45 [From Neosporin ([id number])] neomycin Allergy Unknown Unknown Verified 07/30/22 10:45 [From Neosporin ([id number])] polymyxin B Allergy Unknown Unknown Verified 07/30/22 10:45 [From Neosporin ([id number])] Home Medications Medication Instructions Recorded Confirmed Type levothyroxine 25 mcg tablet 25 mcg PO .@69903/14/20 03/16/23 History (Synthroid) acetaminophen 325 mg tablet 650 mg PO Q4H PRN 09/19/20 03/16/23 History (Tylenol) FEVER/HEADACHE/MINOR ACHES/PAIN aspirin 81 mg tablet,delayed 81 mg PO . @79909/19/20 03/16/23 History release atorvastatin 10 mg tablet 10 mg PO .@79909/19/20 03/16/23 History buspirone 10 mg tablet 10 mg PO .@199909/19/20 03/16/23 History fluticasone propionate 50 2 spray intranasal .@79909/19/20 03/16/23 History mcg/actuation nasal spray,suspension multivitamin (Daily-Chidi tablet) 1 tab PO .@79909/19/20 03/16/23 History Baby Shampoo See Rx Instructions .Route .COMPLEX 03/16/23 03/16/23 History Nitro 0.2% Ointment/Petroleum 1 applic [place] .@199903/16/23 03/16/23 History Thera Breath Oral Rinse 2 cap PO .@199903/16/23 03/16/23 History albuterol sulfate 90 mcg/actuation 2 puff inhalation Q6H PRN 03/16/23 03/16/23 History aerosol inhaler COUGH/WHEEZING buspirone 15 mg tablet 15 mg PO .@159903/16/23 03/16/23 History clotrimazole 1 % topical cream 1 applic topical BID@03/16/23 03/16/23 History docusate sodium 100 mg capsule 100 mg PO . @799, 199903/16/23 03/16/23 History dutasteride 0.5 mg capsule 0.5 mg PO .@79903/16/23 03/16/23 History (Avodart) fluoride (sodium) 1.1 % dental 1 applic dental .@799, 199903/16/23 03/16/23 History paste loperamide 2 mg capsule (Imodium See Rx Instructions .Route 03/16/23 03/16/23 History A-D) .COMPLEX PRN Diarrhea loratadine 10 mg tablet 10 mg PO .@79903/16/23 03/16/23 History magnesium hydroxide 400 mg/5 mL See Rx Instructions .Route 03/16/23 03/16/23 History oral suspension (Milk of Magnesia) .COMPLEX PRN Constipation mupirocin 2 % topical ointment 1 applic topical TID PRN Wound Care 03/16/23 03/16/23 History olopatadine 0.2 % eye drops 1 drp OPB .@79903/16/23 03/16/23 History tamsulosin 0.4 mg capsule 0.4 mg PO .@199903/16/23 03/16/23 History white petrolatum 41 % topical 1 applic topical . @79903/16/23 03/16/23 History ointment (Aquaphor Healing) Patient History Medical History Illiterate Blind in both eyes Nocturnal enuresis Chronic allergic rhinitis Prediabetes Urinary incontinence Intellectual disability Hyponatremia Hypothyroidism 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 Lives in skilled nursing resides at [facility]--all pt information obtained from caregiver at [facility] Hyperlipidemia BPH (benign prostatic hyperplasia) Seizures Last seizure- "many years ago"--reason for Trileptal Surgical History S/P appy No pertinent past surgical history H/O eye surgery As child- to place eye prosthetics Family History Other Family history non-contributory Family history unknown Social History Smoking Status: Never smoker Second Hand Exposure: No; Do You Dip or Chew Tobacco: No; Hx Alcohol Use: No Hx Substance Use: No Preferred Language: Vietnamese Communication Ability: Effective Communication Ability Comment: Blind [employer] Specialist Required: No Beliefs That Will Affect Care: None marital status: Single Current Living Situation: Boarding Home and Personal Care Facility Current Living Situation Comment: Skills current occupational status: unemployed and disabled Feels Safe at Home: Yes Safety Concerns: Feels Safe At This Time Assistive Devices: Cane Review of Systems Review of Systems: Comprehensive review of systems is limited by the patient's intellectual disability, but was grossly negative. Physical Exam Constitutional: no acute distress Eyes: + scleral abnormality (Jaundice noted) ENMT: external ear and nose normal, oropharynx normal Neck: trachea midline, no thyromegaly Respiratory: no labored breathing Auscultation: + diminished lung sounds (decreased breathsounds at the bases bilaterally) Cardiovascular: Rate/Rhythm: + tachycardic and + irregularly irregular Heart Sounds: no murmur Vessels: no JVD Extremities: + edema (trace LE edema ) Gastrointestinal (Abdomen): Inspection/Auscultation: + abdomen distended Percussion/Palpation: abdomen nontender Neurologic: moves all 4 extremities upon request, no focal deficits Results & Data Vital Signs (Past 12 Hours) Vital Signs Temp Pulse Pulse Resp BP BP Pulse Ox 03/18/23 07:55 113 H 03/18/23 07:28 37.2 C 122 H 18 137/82 92 03/18/23 06:52 123 H 03/18/23 06:23 37.5 C 124 H 22 129/85 92 03/18/23 06:23 03/18/23 05:59 102 H 16 124/72 93 03/18/23 05:49 158 H 124/81 03/18/23 03:46 37.3 C 141 H 18 132/82 92 03/18/23 01:48 93 H O2 Del Method 03/18/23 07:55 03/18/23 07:28 Room Air 03/18/23 06:52 03/18/23 06:23 Room Air 03/18/23 06:23 Room Air 03/18/23 05:59 Room Air 03/18/23 05:49 03/18/23 03:46 Room Air 03/18/23 01:48 Laboratory Results Cardiac Enzymes 03/17/23 03/18/23 Range/Units 02:03 05:25 AST 72 H 70 H (13-39) U/L Troponin I High Sens 18.8 (0-20) pg/ml CBC 03/18/23 Range/Units 05:25 WBC 10.49 (4.8-10.8) K/ul RBC 4.80 (4.70-6.10) M/uL Hgb 14.6 (14.0-18.0) g/dl Hct 40.5 L (42.0-52.0) % Plt Count 156 (130-400) K/uL Neut # (Auto) 9.26 H (1.40-6.50) K/uL Lymph # (Auto) 0.37 L (1.20-3.40) K/uL [place] # (Auto) 0.82 H (0.11-0.59) K/uL Eos # (Auto) 0.00 (0.00-0.50) K/uL Baso # (Auto) 0.02 (0.00-0.20) K/uL Comprehensive Metabolic Panel 03/17/23 03/18/23 Range/Units 02:03 05:25 Sodium 140 (136-145) mmol/L Potassium 3.3 L (3.5-5.1) mmol/L Chloride 112 H (98-107) mmol/L Carbon Dioxide 21 (21-32) mmol/L BUN 29 H (6-23) mg/dl Creatinine 1.04 (0.6-1.4) mg/dl Glucose 134 H (70-99(Fasting)) mg/dl Calcium 7.3 L (8.6-10.3) mg/dl Direct Bilirubin 5.3 H (0-0.2) mg/dl AST 72 H 70 H (13-39) U/L ALT 141 H 118 H (7-52) U/L Alkaline Phosphatase 118 H 175 H (34-104) U/L Total Protein 5.5 L 5.3 L (6.0-8.3) gm/dl Albumin 2.8 L 2.7 L (3.4-5.0) gm/dl Diagnostic Findings EKG performed 03/18/23 at 5:07 am AF with RVR at 148 bpm , T wave flattening and subtle ST depression in inferior lateral leads suggestive of related ischemia. Echocardiogram performed 05/17/2022: Technically limited study, likely related to the gastric distention surrounding the caudal portion of his heart on CT abdomen pelvis, no pericardial effusion, grossly normal left ventricular systolic function. (3) Volume overload Hypervolemia type: unspecified Qualified Code(s): E87.70 - Fluid overload, unspecified
[2023-03-18] MEDS: dilTIAZem HCL 125 MG in DEXTROSE 5% 100 ML IV SCH ×3 (10:12→22:42)
[2023-03-18] MEDS ORDERED: HEPARIN SOD (PORCINE) 1000 UNIT/ML IV ONE (10:15)
[2023-03-18] MEDS ORDERED: HEPARIN SODIUM/DEXTROSE 25,000 UNITS/500 ML BAG IV SCH (10:15)
[2023-03-18] MEDS ORDERED: SPIRONOLACTONE 12.5 MG TAB PO SCH (10:30)
[2023-03-18] MEDS: busPIRone 5 MG TAB PO SCH ×2 (11:55→21:23)
[2023-03-18] MEDS: FINASTERIDE 5 MG TAB PO SCH (11:55)
[2023-03-18] MEDS: ATORVASTATIN 10 MG TAB PO SCH (11:55)
[2023-03-18] MEDS: LORATADINE 10 MG TAB PO SCH (11:55)
[2023-03-18] MEDS: FLUTICASONE PROPIONATE NA SPR 16 GM BTL NAE SCH (11:56)
[2023-03-18] MEDS: CLOTRIMAZOLE 1% CR 15 GM TUBE TOP SCH ×2 (11:56→21:24)
[2023-03-18] MEDS: DOCUSATE SODIUM 100 MG CAP PO SCH ×2 (12:00→21:25)
[2023-03-18] MEDS: NITROGLYCERIN 2% OINTMENT 30GM TUBE EXT SCH ×2 (12:20→21:33)
[2023-03-18] MEDS: ASPIRIN 81 MG ECTAB PO SCH (12:21)
--- NOTE | 2023-03-18 15:41 | Hospitalist Progress Note ---
Date of Service March 18, 2023 Assessment & Plan (1) Acute metabolic encephalopathy: Plan: Possibly from infectious etiology, developing sepsis. Initially thought secondary to developing sepsis secondary to UTI. Continue plan per #2. (2) UTI (urinary tract infection): Plan: Acute confusion, sweating, tachycardia, generalized weakness all point to a clinical urinary tract infection in a patient who has a higher risk for this. There is no bacteria on straight cath sample of urine taken in the ER, however there is some positive nitrate and leuk esterase present. Agree with continuing broad-spectrum antibiotics and will de-escalate to Rocephin pending urinary culture results and clinical improvement. Possible developing sepsis but appears more resuscitated at this time. Repeat lactate normal. Will trend bladder scan to ensure no issues with urinary retention in setting of possible infection. 03/17 WBC 14 (improved but still elevated, WBC in ED 17k), pt continues to be mildly tachycardic low 100s, also somewhat mildly tachypneic when conversing even though he denies any shortness of breath and is currently on RA. Also denies any chest pain. He appears jaundiced. Has distended abdomen but nontender. Blood cultx from ED so far negative. CT chest obtained in ED - negat. for PE or PNA. UA negat. for bacteria, ucultx is pending Cont. to concern for infectious etiology. Will obtain liver panel as pt appears jaundiced. Will also obtain CT abdomen/pelvis Bilirubin elevated at 9.1, LFTs elevated - AST, ALT 118, Alk Phos 175 CT abd/pelvis - IMPRESSION: Peripancreatic and other retroperitoneal edema raises the possibility of acute pancreatitis. Recommend correlation with enzymes. Biliary dilation, predominantly intrahepatic. Consider ultrasound and/or MRCP. Small volume ascites. Anasarca could explain mesorectal edema, but correlate for stercoral proctitis. Gaseous distention of the stomach. No perforation. Urinary bladder diverticula with dense contents. Question hematuria US liver - 1. Cholelithiasis with findings suggestive of acute cholecystitis redemonstrated. 2. Intrahepatic and extrahepatic biliary ductal dilation is again seen. 3. Right pleural effusion redemonstrated. MRCP - 1. Findings consistent with acute cholecystitis 2. Large bilateral pleural effusions right greater than left 3. Limited exam as described above Antibiotics switched to zosyn on 03/17/2023. Given there is no biliary coverage at [facility], initiated transfer on 03/17/2023. [place] [facility] no beds available. MRCP was obtained overnight. Overnight pt also developed Afib w/ RVR. GI, Gen. surgery, and cardiology consulted. GI and Gen surgery - Acute cholecystitis, poss. choledocholithiasis, poss. cholangitis. Recommend transfer to tertiary [facility] center for poss. EUS/ERCP + cholecystectomy. As no beds available at [facility], contacted [facility] - pt accepted to their care. Py's brother also updated about the transfer over the phone. Afib w/ RVR - pt was started on IV cardizem and IV heparin - spironolactone initiated and pt received lasix for volume overload, IVF stopped (3) Elevated troponin: Plan: Elevated troponin likely related to demand ischemia in the setting of poss. developing sepsis. Troponin trended down Echo obtained - technically difficult study - LV was visualized in the subcostal view and partially via parasternal short axis view. LV systolic function is grossly normal. There is no pericardial effusion. (4) Weakness: Plan: Likely a result of some ongoing infection versus other insult. With elevated lactate and presentation above, more concerned with an infection at this point. He does have elevated leukocytosis but appears also very concentrated on his initial CBC. He also has an elevated creatinine consistent with prerenal azotemia and dehydration. Continue with plan of rehydration efforts and treatment of possible infection. PT/OT consult prior to discharge. GREGORIO - initial Cr in ED 1.6 now improved, down to 1.2 next day after IVf and abx. Baseline Cr around 1.1 - current Cr 1.1 (5) BPH (benign prostatic hyperplasia): Plan: Chronic, stable although there has been some increased urinary incontinence in the last month. Continue Avodart and Flomax per home regimen. Will rule out infection, follow-up with outpatient urologist. (6) Seizures: Plan: Per history he had seizures as a child but is not on antiepileptic drugs and has no recent seizures in the past few years. (7) Intellectual disability: Plan: Chronic intellectual disability but he is very functional. He is legally blind with prosthetic eyes bilaterally and illiterate, therefore needs some help with IADLs. He is able to feed himself and ambulate independently otherwise. Lives at [facility]. (8) Hypothyroidism: Plan: Chronic, stable. Current TSH 1.9 wnl. Continue levothyroxine at home dose. Lovenox -> now on IV heparin Full code as confirmed with caregiver Dispo-telemetry Admission and Anticipated Discharge Date Admission Date: March 16, 2023 Subjective Pt w/ some hx of intellectual disability but highly functioning and legally blind. Found to have elev. LFTs, elev. bili - MRCP done overnight, US liver obtained - discussed w/ GI and gen. surgery - acute cholecystitis, likely w/ choledecholithiasis, and poss. cholangitis. Pt also developed Afib w/ RVR overnight. Cont. to be on zosyn. Pt seen by cardiology for afib - started on iv heparin , iv cardizem. Currently pt is laying in bed in NAD Seems to be mildly tachypneic when talking to me, however says that he feels better than yesterday and denies shortness of breath to me. He also denies any chest pain or palpitations even though he remains tachycardic at this time. Denies any abdominal pain. Update: Discussed w/ [facility] several times today and they do not have any beds. Discussed again w/ surgery here Dr. Sneed and need for transfer. Contacted [facility] - discussed w/ Dr. Moody (GI), and Dr. Brar (hospitalist) and pt was accepted to their care. Updated pt's brother (Melo) over the phone. Review of Systems Review of Systems: All systems reviewed & are unremarkable except as noted in Subjective Physical Exam Physical Exam: CONSTITUTIONAL: WNWD M in NAD, but mildly tachypneic when conversing, + jaundiced EYES: bilateral prosthetic eyes, normal conjunctivae ENT: external ear and nose normal NECK: supple RESPIRATORY: + crackles at bases, no wheezing, on RA CARDIOVASCULAR: +tachycardic, +irregular CHEST: inspection of chest normal GASTROINTESTINAL: soft, + distended, nontender to palp. MUSCULOSKELETAL: generalized weakness without gross focal deficits, head is normocephalic and atraumatic SKIN: warm and dry, small abrasion on his right knee that is well healing. skin appears jaundiced NEUROLOGIC: somewhat drowsy but awakens easily, and able to answer appropriately, normal speech,moves extremities Results & Data Results & Data Vital Signs (Past 12 Hours) Vital Signs Temp Pulse Pulse Pulse Resp BP BP 03/18/23 10:51 36.4 C L 114 H 20 120/77 03/18/23 07:55 113 H 03/18/23 07:28 37.2 C 122 H 18 137/82 03/18/23 06:52 123 H 03/18/23 06:23 37.5 C 124 H 22 129/85 03/18/23 06:23 03/18/23 05:59 102 H 16 124/72 03/18/23 05:49 158 H 124/81 03/18/23 03:46 37.3 C 141 H 18 132/82 Pulse Ox O2 Del Method 03/18/23 10:51 90 Room Air 03/18/23 07:55 03/18/23 07:28 92 Room Air 03/18/23 06:52 03/18/23 06:23 92 Room Air 03/18/23 06:23 Room Air 03/18/23 05:59 93 Room Air 03/18/23 05:49 03/18/23 03:46 92 Room Air Laboratory Results 03/18/23 03/17/23 Range/Units 05:25 02:03 WBC 10.49 (4.8-10.8) K/ul RBC 4.80 (4.70-6.10) M/uL Hgb 14.6 (14.0-18.0) g/dl Hct 40.5 L (42.0-52.0) % MCV 84.4 (80.0-100.0) fL MCH 30.4 (25.0-34.0) pg MCHC 36.0 (32.0-36.0) g/dL RDW Std Deviation 44.0 (36.4-46.3) fL RDW Coeff of Kobe 14.5 (11.5-14.5) % Plt Count 156 (130-400) K/uL MPV 11.7 (9.4-12.4) fL Immature Gran % (Auto) 0.2 % Neut % (Auto) 88.3 % Lymph % (Auto) 3.5 % [place] % (Auto) 7.8 % Eos % (Auto) 0.0 % Baso % (Auto) 0.2 % Neut # (Auto) 9.26 H (1.40-6.50) K/uL Lymph # (Auto) 0.37 L (1.20-3.40) K/uL [place] # (Auto) 0.82 H (0.11-0.59) K/uL Eos # (Auto) 0.00 (0.00-0.50) K/uL Baso # (Auto) 0.02 (0.00-0.20) K/uL Immature Gran # (Auto) 0.02 (0.01-0.20) K/uL Sodium 140 (136-145) mmol/L Potassium 3.3 L (3.5-5.1) mmol/L Chloride 112 H (98-107) mmol/L Carbon Dioxide 21 (21-32) mmol/L Anion Gap 7 (3-11) BUN 29 H (6-23) mg/dl Creatinine 1.04 (0.6-1.4) mg/dl Est Cr Clr Drug Dosing 61.8 ml/min Est GFR ( Amer) 82.2 ml/min Est GFR (Non-Af Amer) 70.9 ml/min BUN/Creatinine Ratio 27.9 H (10-20) Glucose 134 H (70-99(Fasting)) mg/dl Lactate 1.0 (0.4-2.0) mmol/L Calcium 7.3 L (8.6-10.3) mg/dl Magnesium 2.0 (1.7-2.4) mg/dl Total Bilirubin 7.1 H 9.1 H (0.2-1.0) mg/dl Direct Bilirubin 5.3 H (0-0.2) mg/dl AST 70 H 72 H (13-39) U/L ALT 118 H 141 H (7-52) U/L Alkaline Phosphatase 175 H 118 H (34-104) U/L Troponin I High Sens 18.8 (0-20) pg/ml Total Protein 5.3 L 5.5 L (6.0-8.3) gm/dl Albumin 2.7 L 2.8 L (3.4-5.0) gm/dl Globulin 2.6 (2.5-4.0) gm/dl Albumin/Globulin Ratio 1.0 (0.9-2) Medications Administered Current Inpatient Medications Albuterol (Albut/Ipratrop 3mg/0.5mg Neb 3 Ml Vial) 3 ml NEB Q4H PRN; Protocol PRN Reason: shortness of breath Stop: 04/16/23 14:57 Aspirin (Aspirin 81 Mg Ectab) 81 mg PO TODAY@0800 [facility] Stop: 04/15/23 16:30 Last Admin: 03/18/23 12:21 Dose: 81 mg Atorvastatin Calcium (Atorvastatin 10 Mg Tab) 10 mg PO 0800 [facility] Stop: 04/16/23 07:59 Last Admin: 03/18/23 11:55 Dose: 10 mg Buspirone HCl (Buspirone 5 Mg Tab) 10 mg PO [facility] Stop: 04/15/23 19:59 Last Admin: 03/18/23 11:55 Dose: 10 mg Buspirone HCl (Buspirone 15 Mg Tab) 15 mg PO 1600 [facility] Stop: 04/15/23 16:59 Last Admin: 03/17/23 15:51 Dose: 15 mg Clotrimazole (Clotrimazole 1% Cr 15 Gm Tube) 1 appln TOP BID@ [facility] Stop: 04/15/23 19:59 Last Admin: 03/18/23 11:56 Dose: 1 appln Docusate Sodium (Docusate Sodium 100 Mg Cap) 100 mg PO [facility] Stop: 04/15/23 19:59 Last Admin: 03/18/23 12:00 Dose: 100 mg Finasteride (Finasteride 5 Mg Tab) 5 mg PO 0800 [facility] Stop: 04/16/23 07:59 Last Admin: 03/18/23 11:55 Dose: 5 mg Fluticasone Propionate (Fluticasone Propionate Na Spr 16 Gm Btl) 2 sprays NICOLAS TODAY@0800 [facility] Stop: 04/15/23 16:30 Last Admin: 03/18/23 11:56 Dose: 2 sprays Piperacillin Sod/Tazobactam (Sod 4.5 gm/ Dextrose) 100 mls @ 25 mls/hr IV Q8H [facility]; Protocol Stop: 03/27/23 00:00 Last Admin: 03/18/23 11:26 Dose: 25 mls/hr Heparin Sodium/Dextrose (Heparin Sodium/Dextrose) 25,000 units in 500 mls @ 25 mls/hr IV .Q20H [facility], [facility]; Protocol Stop: 04/17/23 10:14 Last Admin: 03/18/23 11:44 Dose: 1,250 units/hr, 25 mls/hr Diltiazem HCl 125 mg/ Dextrose 125 mls @ 15 mls/hr IV .Q8H20M [facility], [facility]; Protocol Stop: 04/17/23 09:59 Last Titration: 03/18/23 11:00 Dose: 15 mg/hr, 15 mls/hr Levalbuterol HCl (Levalbuterol 1.25mg/0.5ml Neb) 1.25 mg NEB Q4H PRN; Protocol PRN Reason: Shortness Of Breath Or Wheezing Stop: 04/16/23 05:59 Last Admin: 03/17/23 06:04 Dose: 1.25 mg Levothyroxine Sodium (Levothyroxine Sodium 25 Mcg Tablet) 25 mcg PO DAILY [facility] Stop: 04/16/23 06:29 Last Admin: 03/18/23 05:12 Dose: 25 mcg Loratadine (Loratadine 10 Mg Tab) 10 mg PO 0800 [facility] Stop: 04/16/23 07:59 Last Admin: 03/18/23 11:55 Dose: 10 mg Miscellaneous (Olopatadine~Order Awaiting Action) 1 each N/A QS [facility] Stop: 04/16/23 00:00 Last Admin: 03/18/23 00:11 Dose: Not Given Nitroglycerin (Nitroglycerin 2% Ointment 30gm Tube) 0.5 inch EXT [facility] Stop: 04/15/23 19:59 Last Admin: 03/18/23 12:20 Dose: 0.5 inch Ondansetron HCl (Ondansetron Inj 2 Mg/Ml 2 Ml Vial) 4 mg IV Q6H PRN PRN Reason: Nausea Stop: 04/15/23 16:30 Polyethylene Glycol (Polyethylene (Miralax) 17 Gm Pack) 17 gm PO DAILY PRN PRN Reason: Constipation Stop: 04/15/23 16:30 Spironolactone (Spironolactone 12.5 Mg Tab) 12.5 mg PO DAILY [facility] Stop: 04/17/23 10:29 Last Admin: 03/18/23 11:55 Dose: 12.5 mg Tamsulosin HCl (Tamsulosin Hcl 0.4 Mg Cap) 0.4 mg PO 1999 [facility] Stop: 04/15/23 19:59 Last Admin: 03/17/23 20:20 Dose: 0.4 mg
[2023-03-18] MEDS: busPIRone 15 MG TAB PO SCH (17:07)
[2023-03-18 20:18] LABS: ANTI-Xa, UFH(UnfractionatedHep 0.96 IU/ml (0.3-0.7)
--- NOTE | 2023-03-18 20:42 | Discharge Summary ---
Date of Service March 18, 2023 Admission HPI Per Admitting Provider Patient is a 73-year-old man with intellectual disability who lives at the [facility] home. He is reportedly alert and oriented x 3 although I cannot discern this from today's examination, however, he is unable to give a history secondary to intellectual disability. History is provided by his electrical sign wirer helper, Yamile. She is at the bedside. She states that over the last 3 to 4 days he has become more weak, intermittently sweaty with periods of tachycardia and increased work of breathing at times. She states that he typically is very sociable but today appeared very withdrawn. He was eating his breakfast and exhibiting excessive diaphoresis per her account, along with poor appetite which is not his usual. At baseline he ambulates independently. He is able to feed himself but is legally blind. He is also illiterate. He may not comprehend a number scale for pain assessment per his care provider. For the past month she reports he has had issues with bowel incontinence and urinary incontinence. He has seen [facility] urology for issues with urinary retention related to a urethral stricture that was fixed surgically. He no longer has a chronic indwelling Souza catheter as a result. He is on dutasteride and alfuzosin regularly. The patient himself denies any chest pain, shortness of breath, or other issues. He reports he is feeling "just fine." Care provider states that he minimizes issues and frequently does not tell her if things are bothering him. Some confusion has been noted by caregiver who also stated that his heart rate was in the 130s this morning. She did offer that in the past he had been limited on his fluid intake because of an issue with recurrent hyponatremia. He does appear dehydrated but she does not confirm that he is currently on a fluid restriction. In the ER he was given 1.5 L of normal saline and administered broad-spectrum antibiotics with vancomycin and cefepime. Heart rate improved to 104 bpm from initial pulse of 117. Blood pressure has remained stable with no evidence of hypotension. He is afebrile and oxygenating 92% on room air. I reviewed the blood work, imaging studies and the plan with care provider who verbalized understanding. I reviewed the EKG personally and reviewed his outpatient medical records for additional information. Admission Exam Per Admitting Provider CONSTITUTIONAL: WNWD, vitals as above, generally NAD EYES: bilateral prosthetic eyes, PERRL, normal conjunctivae, no evidence of blepharitis. ENT: external ear and nose normal, oropharynx clear, with dry mucous membranes, partial dentures present NECK: trachea midline, no lymphadenopathy RESPIRATORY: clear to auscultation bilaterally, no crackles, rales or wheezes, normal respiratory effort CARDIOVASCULAR: regular rate and rhythm, S1 and 2 heard without murmurs, gallops or rubs, no JVD, no peripheral edema CHEST: inspection of chest was normal GASTROINTESTINAL: soft, nontender, ND, no guarding, well healed vertical abdominal scar MUSCULOSKELETAL: generalized weakness without gross focal deficits, head is normocephalic and atraumatic SKIN: warm and dry, small abrasion on his right knee that is closed and well healing. NEUROLOGIC: unable to elicit patellar DTR, No facial palsy, no dysarthria. CN 2-12 grossly intact, no sensory deficit, normal cognition, normal speech, no tremor PSYCHIATRIC: alert cooperative and attempts to answer questions, possible confusion present although at baseline he is also not forthcoming with answers per caregiver who is at bedside. Euthymic mood, makes good eye contact, language grossly intact, recent and remote memory grossly intact. Principal Diagnosis Sepsis Acute cholecystitis, poss. choledocholithiasis, poss. cholangitis elevated LFTs, elev. Bilirubin Afib w/ RVR Discharge Exam CONSTITUTIONAL: WNWD M in NAD, but mildly tachypneic when conversing, + jaundiced EYES: bilateral prosthetic eyes, normal conjunctivae ENT: external ear and nose normal NECK: supple RESPIRATORY: + crackles at bases, no wheezing, on RA CARDIOVASCULAR: +tachycardic, +irregular CHEST: inspection of chest normal GASTROINTESTINAL: soft, + distended, nontender to palp. MUSCULOSKELETAL: generalized weakness without gross focal deficits, head is normocephalic and atraumatic SKIN: warm and dry, small abrasion on his right knee that is well healing. skin appears jaundiced NEUROLOGIC: somewhat drowsy but awakens easily, and able to answer appropriately, normal speech,moves extremities Discharge Data Allergies Allergy/AdvReac Type Severity Reaction Status Date / Time bacitracin Allergy Unknown Unknown Verified 07/30/22 10:45 [From Neosporin ([id number])] neomycin Allergy Unknown Unknown Verified 07/30/22 10:45 [From Neosporin ([id number])] polymyxin B Allergy Unknown Unknown Verified 07/30/22 10:45 [From Neosporin ([id number])] Consultations 03/16/23 12:34 ED Decision to Admit Stat 03/18/23 07:27 Consult Gastroenterology Routine 03/18/23 08:00 Consult Cardiology Routine Consult Gastroenterology Routine Consult General Surgery Routine 03/18/23 18:00 Burn CD for patient Stat Ordered Studies 03/16/23 09:49 CT angio chest PE protocol Stat FINDINGS: Lungs and pleura: Small bilateral pleural effusions are seen with underlying atelectasis. Heart and pericardium: Heart size is normal. No pericardial effusion. Vessels: No evidence of pulmonary embolism. Mediastinum and daniel: Unremarkable. Chest wall and lower neck: Unremarkable. Abdomen: Unremarkable. Bones: Degenerative changes in the thoracic spine. IMPRESSION: 1. No pulmonary embolus. 2. Small bilateral pleural effusions with underlying atelectasis. CT head/brain wo con Stat Findings: Areas of decreased attenuation are present in the periventricular and subcortical white matter bilaterally consistent with small vessel ischemic disease. Generalized cerebral atrophy with commensurate enlargement of the ventricles, sulci, and cisterns is also present. There is no acute intracranial hemorrhage or evidence of acute territorial infarction. No shift of the midline structures, mass effect, or extra-axial abnormalities are shown. Atheros clerotic calcifications are present in the intracranial segments of the internal carotid arteries. Imaged portions of the paranasal sinuses and mastoid air cells are clear. Bilateral ocular prostheses. There are no acute fractures of the calvaria or scalp swelling. Impression: No acute intracranial hemorrhage, no evidence of acute territorial infarction or other acute intracranial disease process. 03/17/23 17:16 CT abd pelvis wo con Urgent FINDINGS: Small-moderate bilateral pleural effusions. Associated basilar atelectasis, left greater than right. Peripancreatic and other retroperitoneal edema raises the possibility of acute pancreatitis. Recommend correlation with enzymes. Biliary dilation, predominantly intrahepatic. Consider ultrasound and/or MRCP. Small volume ascites and generalized edema/anasarca. This could explain mesorectal edema, but correlate for impaction and stercoral proctitis. Gaseous distention of the stomach. No perforation. Diverticula to the leftward urinary bladder. Dense bladder contents could reflect blood products. Question hematuria. No hydronephrosis. Aortoiliac atherosclerosis. No AAA. Operative changes of the abdominal wall. Fatty inguinal hernias. Thoracolumbar spondylosis and hyperostosis. No acute fracture. IMPRESSION: Peripancreatic and other retroperitoneal edema raises the possibility of acute pancreatitis. Recommend correlation with enzymes. Biliary dilation, predominantly intrahepatic. Consider ultrasound and/or MRCP. Small volume ascites. Anasarca could explain mesorectal edema, but correlate for stercoral proctitis. Gaseous distention of the stomach. No perforation. Urinary bladder diverticula with dense contents. Question hematuria 03/17/23 21:06 MR MRCP Stat FINDINGS: Limitations: Exam significantly limited secondary to patient respiratory motion. Lower thorax: Large bilateral pleural effusions right greater than left. Bile ducts: Unremarkable. No stones. No ductal dilation. Gallbladder: Cholelithiasis mild intrahepatic biliary ductal dilatation. Cholelithiasis with pericholecystic fluid. Liver: Unremarkable. Pancreas: Unremarkable. No ductal dilation. Spleen: Unremarkable. No splenomegaly. Adrenals: Unremarkable. No mass. Kidneys and ureters: Unremarkable. No hydronephrosis. Stomach and bowel: Unremarkable. No obstruction. IMPRESSION: 1. Findings consistent with acute cholecystitis 2. Large bilateral pleural effusions right greater than left 3. Limited exam as described above 03/18/23 US liver Stat FINDINGS: Pancreas: By bowel gas. Liver: No hepatic mass or marginal nodularity of the parenchyma. Intrahepatic biliary ductal dilation. Gallbladder: Stone filled gallbladder demonstrates wall thickening measuring up to 3-4 mm. Pericholecystic edema also noted. Negative sonographic Rosario's sign. CBD: 0.8 cm. Right kidney: No hydronephrosis. Right pleural effusion redemonstrated. IMPRESSION: 1. Cholelithiasis with findings suggestive of acute cholecystitis redemonstrated. 2. Intrahepatic and extrahepatic biliary ductal dilation is again seen. 3. Right pleural effusion redemonstrated. Hospital Course (1) Acute metabolic encephalopathy: Possibly from infectious etiology, developing sepsis. Initially thought secondary to developing sepsis secondary to UTI. Continue plan per #2. (2) UTI (urinary tract infection): Initially thought pt's presentation 2/2 UTI and poss. developing sepsis as per admitting provider - Acute confusion, sweating, tachycardia, generalized weakness all point to a clinical urinary tract infection in a patient who has a higher risk for this. There is no bacteria on straight cath sample of urine taken in the ER, however there is some positive nitrate and leuk esterase present. Agree with continuing broad-spectrum antibiotics and will de-escalate to Rocephin pending urinary culture results and clinical improvement. Possible developing sepsis but appears more resuscitated at this time. Repeat lactate normal. Will trend bladder scan to ensure no issues with urinary retention in setting of possible infection. Acute cholecystitis, poss. choledocholithiasis, poss. cholangitis. 03/17 WBC 14 (improved but still elevated, WBC in ED 17k), pt continues to be mildly tachycardic low 100s, also somewhat mildly tachypneic when conversing even though he denies any shortness of breath and is currently on RA. Also denies any chest pain. He appears jaundiced. Has distended abdomen but nontender. Blood cultx from ED so far negative. CT chest obtained in ED - negat. for PE or PNA. UA negat. for bacteria, ucultx is pending Cont. to concern for infectious etiology. Will obtain liver panel as pt appears jaundiced. Will also obtain CT abdomen/pelvis Bilirubin elevated at 9.1, LFTs elevated - AST, ALT 118, Alk Phos 175 CT abd/pelvis - IMPRESSION: Peripancreatic and other retroperitoneal edema raises the possibility of acute pancreatitis. Recommend correlation with enzymes. Biliary dilation, predominantly intrahepatic. Consider ultrasound and/or MRCP. Small volume ascites. Anasarca could explain mesorectal edema, but correlate for stercoral proctitis. Gaseous distention of the stomach. No perforation. Urinary bladder diverticula with dense contents. Question hematuria US liver - 1. Cholelithiasis with findings suggestive of acute cholecystitis redemonstrated. 2. Intrahepatic and extrahepatic biliary ductal dilation is again seen. 3. Right pleural effusion redemonstrated. MRCP - 1. Findings consistent with acute cholecystitis 2. Large bilateral pleural effusions right greater than left 3. Limited exam as described above Antibiotics switched to zosyn on 03/17/2023. Given there is no biliary coverage at [facility], initiated transfer on 03/17/2023. Pt initially accepted at [facility], however no beds available. MRCP was obtained overnight. Overnight pt also developed Afib w/ RVR. GI, Gen. surgery, and cardiology consulted. GI and Gen surgery - Acute cholecystitis, poss. choledocholithiasis, poss. cholangitis. Recommend transfer to [facility] for poss. EUS/ERCP + cholecystectomy. As no beds available at [facility], contacted [facility] [place] to their care. Pt's brother also updated on clinical status and about the transfer over the phone. Afib w/ RVR - pt was started on IV cardizem and IV heparin - spironolactone initiated and pt received lasix for volume overload, IVF stopped (3) Elevated troponin: Elevated troponin likely related to demand ischemia in the setting of poss. developing sepsis. Troponin trended down Echo obtained - technically difficult study - LV was visualized in the subcostal view and partially via parasternal short axis view. LV systolic function is grossly normal. There is no pericardial effusion. (4) Weakness: Likely secondary to infection, as above. PT/OT when medically stable. GREGORIO - initial Cr in ED 1.6 now improved, down to 1.2 next day after IVf and abx. Baseline Cr around 1.1 - current Cr 1.1 (5) BPH (benign prostatic hyperplasia): Chronic, stable although there has been some increased urinary incontinence in the last month. Continue Avodart and Flomax per home regimen. Follow-up with outpatient urologist. (6) Seizures: Per history he had seizures as a child but is not on antiepileptic drugs and has no recent seizures in the past few years. (7) Intellectual disability: Chronic intellectual disability but he is very functional. He is legally blind with prosthetic eyes bilaterally and illiterate, therefore needs some help with IADLs. He is able to feed himself and ambulate independently otherwise. Lives at [facility] house. (8) Hypothyroidism: Chronic, stable. Current TSH 1.9 wnl. Continue levothyroxine at home dose. Lovenox -> now on IV heparin Full code as confirmed with caregiver Dispo-telemetry Total Time Total Time Spent Total Time Spent (In Minutes): 60 Discharge Plan Discharge Items Patient Disposition: Transfer Acute Care Hospital Reason For Visit: ACUTE METABOLIC ENCEPHALOPATHY, WEAKNESS, POSS SEP Discharge Diagnosis: Sepsis Acute cholecystitis, poss. choledocholithiasis, poss. cholangitis elevated LFTs, elev. Bilirubin Afib w/ RVR Activity: Per Instructions section Non-emergency contact: [employer] Specialist Call non-emergency contact if: you have any medication questions and your symptoms worsen Follow-up/Referrals: Balaji Solomon MD [Primary Care Provider] - Diet: Nothing by Mouth Addtl Attending Provider Instructions: Pt to be transferred to [facility] [place] eval & treatment - pt w/ acute cholecystitis, poss. choledecholithiasis, poss. cholangitis. Pt is in need of ERCP (no GI available at this time at [facility]) and gen. surgery. Developed afib w/ RVR. Pending Studies at Discharge: Yes Studies:: blood cultx results Stand-Alone Forms: My [facility] Skilled Items Patient informed of condition?: Yes DNR: No Discharge Level of Care: Other Communicable Disease: No Discharge Prognosis: Other Lines: Peripheral IV Urinary Catheter: No Medications and DC Order Prescriptions: New spironolactone 25 mg Tablet 12.5 mg PO DAILY Qty: 14 0RF Continued levothyroxine [Synthroid] 25 mcg Tablet 25 mcg PO .@0700 multivitamin [Daily-Chidi] Tablet 1 tab PO .@0800 Rx Instructions: CHEWABLE acetaminophen [Tylenol] 325 mg Tablet 650 mg PO Q4H MDD 4 GRAMS/24 HOURS PRN (Reason: FEVER/HEADACHE/MINOR ACHES/PAIN) atorvastatin 10 mg Tablet 10 mg PO .@0800 aspirin 81 mg Tablet,Delayed Release (Dr/Ec) 81 mg PO . @0800 buspirone [BuSpar] 10 mg Tablet 10 mg PO .@799, 1999 fluticasone propionate [Flonase] 50 mcg/actuation [place],Suspension 2 spray INTRANASAL .@0800 loperamide [Imodium A-D] 2 mg Capsule See Rx Instructions .ROUTE .COMPLEX MDD NO MORE THAN 4 DOSES/24H PRN (Reason: Diarrhea) Rx Instructions: 2 CAPS AT ONSET OF LOOSE STOOLS, THEN 1 CAP AFTER LOOSE STOOLS magnesium hydroxide [Milk of Magnesia] 400 mg/5 mL Suspension See Rx Instructions .ROUTE .COMPLEX PRN (Reason: Constipation) Rx Instructions: 300 CC docusate sodium 100 mg Capsule 100 mg PO . @799, 1999 mupirocin 2 % Ointment 1 applic TOPICAL TID PRN (Reason: Wound Care) albuterol sulfate 90 mcg/actuation Hfa Aerosol Inhaler 2 puff INHALATION Q6H PRN (Reason: COUGH/WHEEZING) clotrimazole 1 % Cream 1 applic TOPICAL BID@ Rx Instructions: APPLY TO AFFECTED FEET BOTTOMS loratadine 10 mg Tablet 10 mg PO .@0800 buspirone 15 mg tablet 15 mg PO .@1600 Aquaphor Healing 41 % Ointment 1 applic TOPICAL . @0800 fluoride (sodium) [PreviDent 5000 Booster] 1.1 % Paste 1 applic DENTAL .@799, 1999 olopatadine 0.2 % Drops 1 drp OPB .@0800 Baby Shampoo See Rx Instructions .ROUTE .COMPLEX Rx Instructions: scrub eyelids @0800 Nitro 0.2% Ointment/Petroleum 1 applic [place] .@799, 1999 Thera Breath Oral Rinse 2 cap PO .@1999 Rx Instructions: RINSE AND GARLE WITH 1 CAP FULL FOR 1 MINUTE. THEN ANOTHER CAP FULL GARGLE 30 SECONDS tamsulosin 0.4 mg capsule 0.4 mg PO .@1999 dutasteride [Avodart] 0.5 mg capsule 0.5 mg PO .@0800 Discharge Orders: Discharge Order (Routine); Ordered 03/18/23 Ordered By: Kenrick Beach Admission Data Admit Date/Time: 03/16/23 13:31 Attending Provider: Luis Carlos Mcdowell Admit Provider: Flor Galvan Primary Care Provider: Balaji Solomon Other Providers: Flor Galvan; Paddy Byrd; Dusty Sol; Sandy Mayer; Kimmie De Oliveira; Casi Beatty; Best,Aric; Paddy Talley; Kevin Cheney; Araceli Lynch; Gisela Tanner S; Antonino Jerez; Diamond Jovel; Angela Villeda; Zenaida Heaton; Kellie Zarate; José Garcia; Antony Sanchez; Jamil Corbin; Doris Levin; Anya Oliver Jr; Adam Marin; Balaji Guevara; Xenia Cheney; Petey Gore; Checo Nieto; Billie Dixon; Kimmie Schultz; Fox Galvan Jr; Regino Sneed; Richie Starks; Kellie Beckett; Doris Robledo; Sheldon Asencio; Leo Retana; Carson Portillo; Checo Christensen; Balaji Ward; Marina Kerr; Laura aSnds; Doris Hare; Jesse Vaca; Gavino Vargas; Linda Castellanos; Ana Rossi; Jocelynn Morgan; Cristofer Buchanan
[2023-03-18] MEDS: TAMSULOSIN HCL 0.4 MG CAP PO SCH (21:25)
== END 2023-03-18 22:48 | disposition short-term general hospital (02) | DRG 871 ==
LOC: ED 09:08 → 2N 13:31 → SUATTDRO 13:31 → 2N 16:18 → 2S 03-18 06:16
DX: N17.9 Acute kidney failure, unspecified; I24.89 Other forms of acute ischemic heart disease; N35.919 Unspecified urethral stricture, male, unspecified site; E87.20 Acidosis, unspecified; Z79.890 Hormone replacement therapy; H54.8 Legal blindness, as defined in USA; K80.42 Calculus of bile duct with acute cholecystitis without obstruction; R32 Unspecified urinary incontinence; F79 Unspecified intellectual disabilities; E03.9 Hypothyroidism, unspecified; Z79.82 Long term (current) use of aspirin; G93.41 Metabolic encephalopathy; N40.1 Benign prostatic hyperplasia with lower urinary tract symptoms; A41.9 Sepsis, unspecified organism; N39.0 Urinary tract infection, site not specified; K80.30 Calculus of bile duct with cholangitis, unspecified, without obstruction